=== PATIENT | female | born 1960 | race Caucasian/White ===

== ENCOUNTER 2021-11-26 12:56 | Emergency (ER) | payer OTHER ==
[2021-11-26 13:38] LABS: Urine Blood Trace-intact (Negative); Urine Glucose Negative (Negative); Urine Protein Negative (Negative); Urine Specific Gravity 1.025 (1.005-1.030)
[2021-11-26] MEDS ORDERED: HYDROCODONE/APAP 5/325 MG TAB ONE (13:51)
--- NOTE | 2021-11-26 15:25 | RAD REPORT ---
EXAM DESCRIPTION: RAD - Lumbar Spine 3 Views - 11/26/2021 2:42 pm CLINICAL HISTORY: PAIN COMPARISON: LUMBAR SPINE 3 VIEWS dated 06/18/2014 FINDINGS: A three-view lumbar spine examination was performed. Lumbar bodies are normal in height and normal in AP alignment. There is a very minimal right convex s coliotic curvature with the apex at L2. Very slight right lateral subluxation of L2 relative to L3 pr esent. This is a stable alignment pattern. No acute compression fracture. No pathologic bone changes seen. L2-3 and L4-5 disc space narrowing pr esent. Findings have progressed from the remote 2015 study. Facet joint degenerative changes are pres ent in the mid and lower lumbar spine. Mild SI joint degenerative changes are present. No pars defect s identified. Dense nonaneurysmal aortoiliac calcifications seen. IMPRESSION: No acute compression fracture or acute lumbar spine finding identifiable. Degenerative changes are scattered throughout lumbar spine most notable at L2-3 and L4-5. Degenerativ e changes at these 2 levels have progressed from 2015.
--- NOTE | 2021-11-26 15:36 | EDPHYS ---
Physician Documentation [facility] Name: Taryn Murillo Age: 61 yrs Sex: Female : 1960 Arrival Date: 11/26/2021 Time: 13:01 Bed 14 Private MD: ED Physician Román Leavitt HPI: 11/26 14:04 This 61 yrs old Female presents to ER via Ambulatory with complaints of Back Pain. en 14:04 61 yo F with COPD, HTN, CAD presents to ED with right sided low back after falling on en jetty 8d ago. Pain is worse with ambulation and movement. No radiating. Denies F/C/N/V. No CP, SOB, Abd pain, dysuria, hematuria. No numbness, tingling, or weakness. Historical: - Allergies: 13:27 No Known Allergies; ss - Immunization history:: Adult Immunizations unknown. - Social history:: Smoking status: Patient reports the use of cigarette tobacco products, smokes one pack cigarettes per day. ROS: 14:04 Constitutional: Negative for fever, chills, and weight loss. en 14:04 Constitutional: Negative for body aches, chills, fatigue. 14:04 Cardiovascular: Negative for chest pain. 14:04 Respiratory: Negative for shortness of breath. 14:04 Abdomen/GI: Negative for abdominal pain, nausea and vomiting. 14:04 Back: Positive for decreased range of motion, pain with movement. 14:04 : Negative for urinary frequency. 14:04 All other systems are negative. Exam: 14:04 Constitutional: This is a well developed, well nourished patient who is awake, alert, en and in no acute distress. 14:04 Constitutional: The patient appears in no acute distress, alert, awake. 14:04 Eyes: Conjunctiva: normal, no exudate, no injection. 14:04 ENT: Mouth: Lips: moist, Posterior pharynx: Airway: patent. 14:04 Neck: ROM/movement: is normal, is supple. 14:04 Cardiovascular: Rate: normal, Rhythm: regular, Pulses: no pulse deficits are appreciated, Heart sounds: normal, no murmur, no rub, no gallop, Edema: is not appreciated. 14:04 Respiratory: the patient does not display signs of respiratory distress, Respirations: normal, Breath sounds: are clear throughout, no rales, rhonchi, no stridor. 14:04 Abdomen/GI: Inspection: abdomen appears normal, Bowel sounds: normal, Palpation: abdomen is soft and non-tender, in all quadrants, no pulsatile masses. 14:04 Back: right SI joint TTP. no midline TTP. No CVA TTP. 14:04 Musculoskeletal/extremity: 5/5 PF.DF/EHL. no foot drop, steady gait. 2+ DP/PT pulses. negative SLR. 14:04 Neuro: Orientation: appropriate for stated age, to person, place \T\ time. Mentation: appropriate for stated age, 2+ patellar reflexes, normal peroneal nerve sensation. 14:04 Psych: Behavior/mood is pleasant, cooperative, Affect is calm. Vital Signs: 13:25 BP 127 / 72; Pulse 86; Resp 18; Temp 98.0; Pulse Ox 96% on R/A; Weight 87.09 kg; Height ss 5 ft. 3 in. (160.02 cm); Pain 10/10; 15:43 BP 133 / 94; Pulse 74; Resp 17; Pulse Ox 96% ; Pain 7/10; ll1 13:25 Body Mass Index 34.01 (87.09 kg, 160.02 cm) ss MDM: 13:40 Patient medically screened. en 14:04 Differential diagnosis: muscle strain, sciatica, fracture. Data reviewed: vital signs, en nurses notes, radiologic studies, and as a result, I will will get XR and control pain. . 15:33 ED course: Pain better controlled. Discussed XR vs MRI. no acute fx on XR today. Will en dc home with Robaxin, medrol dose pack and ketorolac with PCP f/u. Acute ER return precautions reviewed. . 11/26 13:38 Order name: Urine Dipstick-Ancillary; Complete Time: 14:14 EDMS 11/26 13:40 Order name: Lumbar Spine (3 Views) XRAY; Complete Time: 15:33 en 11/26 13:40 Order name: Urine Dipstick-Ancillary (obtain specimen); Complete Time: 13:42 en Administered Medications: 13:49 Drug: HYDROcodone-acetaminophen 5 mg-325 mg 1 tabs {Note: rass 0.} Route: PO; ll1 15:43 Follow up: Response: No adverse reaction; Pain is decreased; RASS: Alert and Calm (0) ll1 Disposition: 16:43 Co-signature as Attending Physician, Román Leavitt MD I agree with the assessment and kdr plan of care. Disposition Summary: 11/26/21 15:35 Discharge Ordered Location: Home en Problem: new en Symptoms: have improved en Condition: Stable en Diagnosis - Low back pain en Followup: en - With: Rajendra Carrasquillo MD - When: As needed - Reason: Discharge Instructions: - Discharge Summary Sheet en - Acute Back Pain, Adult en Forms: - Medication Reconciliation Form en - Thank You Letter en - Antibiotic Education en - Prescription Opioid Use en Prescriptions: - ketorolac 10 mg Oral tablet - take 1 tablet by ORAL route every 4-6 hours not to exceed 40 mg in 24hrs; 12 en tablet; Refills: 0, Product Selection Permitted - methocarbamol 750 mg Oral Tablet - take 1 tablet by ORAL route 3 times per day; 30 tablet; Refills: 0, Product en Selection Permitted Signatures: Dispatcher [employer] EDMS Román Leavitt MD MD [facility] Gabriela Downing RN RN Stephy Aponte RN RN ll1 Rachel Silva PA PA en
--- NOTE | 2021-11-26 15:36 | ER ---
Nurse's Notes [facility] Name: Taryn Murillo Age: 61 yrs Sex: Female : 1960 Arrival Date: 11/26/2021 Time: 13:01 Bed 14 Private MD: Diagnosis: Low back pain Presentation: 11/26 13:25 Chief complaint: Patient states: R lower back pain that started approx 1 week ago, ss states that she fell 1 week ago, also has hx of kidney infection, reports frequent urination, denies burning, also denies fever, N/V. Coronavirus screen: Vaccine status: Patient reports receiving the 2nd dose of the covid vaccine. Ebola Screen: No symptoms or risks identified at this time. Initial Sepsis Screen: Does the patient meet any 2 criteria? No. Patient's initial sepsis screen is negative. Does the patient have a suspected source of infection? No. Patient's initial sepsis screen is negative. Risk Assessment: Do you want to hurt yourself or someone else? Patient reports no desire to harm self or others. 13:25 Method Of Arrival: Ambulatory ss 13:25 Acuity: WALT 3 ss 13:30 Onset of symptoms was November 20, 2021. ll1 Historical: - Allergies: 13:27 No Known Allergies; ss - Immunization history:: Adult Immunizations unknown. - Social history:: Smoking status: Patient reports the use of cigarette tobacco products, smokes one pack cigarettes per day. Screenin:29 Abuse screen: Denies threats or abuse. Nutritional screening: No deficits noted. ll1 Tuberculosis screening: No symptoms or risk factors identified. 13:31 Fall Risk Fall in past 12 months (25 points). Gait- Weak (10 pts.). Total Buckner Fall ll1 Scale indicates Low Risk Score (25-44 pts). Fall prevention measures have been instituted. Side Rails Up X 2 Placed close to Nursing Station Frequent Obs/Assesments occuring Family Present and informed to notify staff if they need to leave bedside As available Patient and Family Educated on Fall Prevention Program and strategies. Assessment: 13:29 General: Appears uncomfortable, Behavior is calm, cooperative, appropriate for age. ll1 Pain: Complains of pain in R lower back Quality of pain is described as aching, Aggravated by increased activity. Neuro: Level of Consciousness is awake, alert, obeys commands. : Reports urinary frequency. Musculoskeletal: Reports pain in R lower back. 13:49 Reassessment: No changes from previously documented assessment. Patient and/or family ll1 updated on plan of care and expected duration. Pain level reassessed. Patient is alert, oriented x 3, equal unlabored respirations, skin warm/dry/pink. 14:30 Reassessment: No changes from previously documented assessment. Patient and/or family ll1 updated on plan of care and expected duration. Pain level reassessed. 15:35 Reassessment: No changes from previously documented assessment. Patient and/or family ll1 updated on plan of care and expected duration. Pain level reassessed. Vital Signs: 13:25 BP 127 / 72; Pulse 86; Resp 18; Temp 98.0; Pulse Ox 96% on R/A; Weight 87.09 kg; Height ss 5 ft. 3 in. (160.02 cm); Pain 10/10; 15:43 BP 133 / 94; Pulse 74; Resp 17; Pulse Ox 96% ; Pain 7/10; ll1 13:25 Body Mass Index 34.01 (87.09 kg, 160.02 cm) ED Course: 13:01 Patient arrived in ED. rg4 13:22 Rachel Silva PA is PHCP. en 13:22 Román Levaitt MD is Attending Physician. en 13:27 Triage completed. ss 13:27 Arm band placed on Patient placed in an exam room. ss 13:29 Stephy Aponte, LIEN is Primary Nurse. ll1 13:29 Patient has correct armband on for positive identification. Bed in low position. Call ll1 light in reach. Side rails up X 1. Pulse ox on. NIBP on. 14:44 Lumbar Spine (3 Views) XRAY In Process Unspecified. EDMS 15:34 Rajendra Carrasquillo MD is Referral Physician. en 15:43 No provider procedures requiring assistance completed. Patient did not have IV access ll1 during this emergency room visit. Administered Medications: 13:49 Drug: HYDROcodone-acetaminophen 5 mg-325 mg 1 tabs {Note: rass 0.} Route: PO; ll1 15:43 Follow up: Response: No adverse reaction; Pain is decreased; RASS: Alert and Calm (0) ll1 Medication: 13:29 VIS not applicable for this client. ll1 Outcome: 15:35 Discharge ordered by . en 15:43 Discharged to home ambulatory. ll1 15:43 Condition: stable 15:43 Discharge instructions given to patient, Instructed on discharge instructions, follow up and referral plans. medication usage, Demonstrated understanding of instructions, follow-up care, medications, Prescriptions given X 2. 15:44 Patient left the ED. ll1 Signatures: Dispatcher [employer] EDMS Gabriela Downing RN RN ss Garcia, Rubi 4 Stephy Aponte RN RN ll1 Rachel Silva PA PA en
[2021-11-26 16:00] VITALS: TEMP 98; O2SAT 96
[2021-11-26 16:02] VITALS: BP 133/94
== END 2021-11-26 15:44 | disposition home or self-care (01) ==
LOC: ER 12:56
DX: M54.50 Low back pain, unspecified (principal); I10 Essential (primary) hypertension; J44.9 Chronic obstructive pulmonary disease, unspecified; F17.210 Nicotine dependence, cigarettes, uncomplicated
CPT/HCPCS: 72100; 81003; 99284

== ENCOUNTER 2022-06-28 06:41 | Emergency (ER) | payer OTHER ==
--- OUTSIDE RECORDS SUMMARY | 2022-06-28 06:44 | XMS REPORT | Continuity of Care Document ---
:1960 Author Organization [facility] Address [address] [place] [address] [address]. [address] [place] [address] Care Team Providers Name Role Phone Kings Gallagher Attending Clinician Unavailable KINGS GALLAGHER Admitting Clinician Unavailable Problems This patient has no known problems. Allergies, Adverse Reactions, Alerts This patient has no known allergies or adverse reactions. Medications This patient has no known medications. Procedures This patient has no known procedures. Encounters Start End Encounter Admission Attending Care Care Encounter Source Date/Time Date/Time Type Type Clinicians Facility Department ID 2022-06-22 Outpatient Gallagher, [facility] [id number] Common 15:12:01 [facility] 2022-04-23 [facility] [id number] Common 14:59:01 [facility] 2022-03-22 [facility] [id number] Common 11:11:02 [facility] 2022-03-16 Outpatient Gallagher, [facility] [id number] Common 09:09:03 Kings [facility] 2022-03-07 Outpatient Gallagher, [facility] [id number] Common 08:36:03 Kings [facility] 2022-03-05 [facility] [id number] Common 11:31:02 [facility] 2022-02-19 [facility] [id number] Common 13:30:01 [facility] 2022-02-14 Outpatient Gallagher, [facility] [id number] Common 11:29:02 [facility] 2022-02-12 Outpatient ÁNGEL Gallagher [facility] [id number] Common 13:20:02 [facility] Results Test Description Test Time Test Comments Results Result Comments Source COMPREHENSIVE METABOLIC PANEL 2021-10-31 02:48:16 Test Item Value Reference Range Interpretation Comme nts GLUCOSE (test code = 2216) 100 MG/DL 70-99 H BUN (test code = 2207) 15 MG/DL 8-23 CREATININE (test code = 0.90 MG/DL 0.60-1.30 2213) eGFR (2020 CKD-EPI) (test 72 ML/MIN/1.73 >60 code = 83716) CALC BUN/CREAT (test code = 17 RATIO 6-28 2234) SODIUM (test code = 223) 142 MEQ/L 133-146 POTASSIUM (test code = 2228) 4.3 MEQ/L 3.5-5.4 CHLORIDE (test code = 2215) 105 MEQ/L 95-107 CARBON DIOXIDE (test code = 25 MEQ/L 19-31 2205) CALCIUM (test code = 2209) 10.0 MG/DL 8.5-10.5 PROTEIN, TOTAL (test code = 7.4 G/DL 6.1-8.3 2228) ALBUMIN (test code = 2201) 4.5 G/DL 3.5-5.2 CALC GLOBULIN (test code = 2.9 G/DL 1.9-3.7 2239) CALC A/G RATIO (test code = 1.6 RATIO 1.0-2.6 2233) BILIRUBIN, TOTAL (test code 0.4 MG/DL See_Comment [Automated message] The = 2206) system which ge nerated this result transmit yvonne reference range: <=1.2. T he reference range was not u sed to interpret this result as normal/abnormal . ALKALINE PHOSPHATASE (test 92 U/L 40-140 code = 2204) AST (test code = 2218) 13 U/L 9-40 ALT (test code = 2219) 12 U/L 5-40 LIPID [id number] 02:48:16 Test Item Value Reference Range Interpretation Comments CHOLESTEROL (test 137 MG/DL <200 code = 2210) TRIGLYCERIDES (test 281 MG/DL <150 H code = 2232) HDL CHOLESTEROL (test 41 MG/DL >39 code = 2220) CALC LDL CHOL (test 63 MG/DL <100 NOTE: C ALCULATED LDL code = 2237) IS BASED ON VICKEY-MOODY METHOD WHICHINCLUDES ADJUSTABLE TRIGLYCERIDE:VL DL CHOLESTEROL RAT IO.THIS FACTOR VARIES B Y MEASURED TRIGLY CERIDE AND NON-HDLCHOL ESTEROL CONCENTRATIONS WITH INCREASED CALCU LATED LDL SEENIN HIGH ER TRIGLYCERIDE OR LOWER NON-HDL SPECIME NS. FOR MOREINFORMATION , SEE CLIENT ANNOUNCE MENT AT [email or web address] RISK RATIO LDL/HDL 1.54 RATIO <3.22 UNLESS O THERWISE (test code = 2238) INDICATED , ALL TESTING PERFORMED [facility]. [address] [place] [id number] [facility] DIRECTOR: CAMRYN RAZA M.D. CLIA NUMBER [id number] CAP ACCREDITATION N O. [id number]
[2022-06-28] MEDS ORDERED: DIAZEPAM 5 MG TABLET ONE (07:19)
[2022-06-28] MEDS ORDERED: HYDROCODONE/APAP 5/325 MG TAB ONE (07:20)
--- NOTE | 2022-06-28 08:08 | RAD REPORT ---
EXAM DESCRIPTION: RAD - Chest Pa And Lat (2 Views) - 06/28/2022 7:40 am CLINICAL HISTORY: PAIN COMPARISON: Two view chest 06/18/2014, CT chest 04/03/2022 TECHNIQUE: Frontal and lateral views of the chest were obtained. FINDINGS: The lungs are clear of an acute process. Interstitial pattern matches comparison. Small ro unded density is shown on the CT chest study to be a small area of sclerosis in the posterior right f ifth rib. No new or progressive nodule from prior imaging. Trachea is midline. No hilar mass or lymphadenopathy. Heart size is normal and central vasculature is within normal limits. No pleural effusion or pneumothorax seen. No acute bony finding noted. No a ortic abnormality. IMPRESSION: No acute cardiopulmonary process. No significant change from comparison study.
--- NOTE | 2022-06-28 08:24 | ER ---
Nurse's Notes [facility] Name: Taryn Murillo Age: 62 yrs Sex: Female : 1960 Arrival Date: 06/28/2022 Time: 06:46 Bed 4 Private MD: Diagnosis: Muscle spasm;Chest wall pain Presentation: 06/28 06:54 Chief complaint: Patient states: slipped on mud while walking to car did not fall kl reports twisted back c/o left lower back pain. Care prior to arrival: None. Mechanism of Injury: Fall same level fall. Trauma event details: Injury occurred in the [facility], Injury occurred: at home. Injury occurred: June 28, 2022 Injury occurred at: 06:00. 06:54 Acuity: WALT 4 kl 06:54 Method Of Arrival: Wheelchair 07:15 Coronavirus screen: At this time, the client does not indicate any symptoms associated kc6 with coronavirus-19. Ebola Screen: No symptoms or risks identified at this time. Initial Sepsis Screen: Does the patient meet any 2 criteria? No. Patient's initial sepsis screen is negative. Does the patient have a suspected source of infection? No. Patient's initial sepsis screen is negative. Risk Assessment: Do you want to hurt yourself or someone else? Patient reports no desire to harm self or others. Onset of symptoms was June 28, 2022. Historical: - Allergies: 06:58 No Known Allergies; kl - PMHx: 06:58 COPD; Chronic pain; kl - PSHx: 06:58 hysterectomy; stents; kl - Immunization history:: Client reports receiving the 2nd dose of the Covid vaccine, Flu vaccine is up to date. - Social history:: Smoking status: Patient reports the use of cigarette tobacco products, smokes one pack cigarettes per day. Screenin:15 [facility] ED Fall Risk Assessment (Adult) History of falling in the last 3 months, kc6 including since admission Yes- single mechanical fall (1 pt) Confusion or Disorientation No (0 pts) Intoxicated or Sedated No (0 pts) Impaired Gait No (0 pts) Mobility Assist Device Used No (0 pt) Altered Elimination No (0 pt) Score/Fall Risk Level 0 - 2 = Low Risk Oriented to surroundings, Maintained a safe environment, Educated pt \T\ family on fall prevention, incl call for assistance when getting out of bed, Assessed \T\ reinforced patient's understanding of fall precautions, Hourly rounding (assess needs \T\ fall precautionary measures) done. Abuse screen: Denies threats or abuse. Denies injuries from another. Nutritional screening: No deficits noted. Tuberculosis screening: No symptoms or risk factors identified. Assessment: 06:58 General: Appears distressed, uncomfortable, well developed, Behavior is calm, kl cooperative. Pain: Complains of pain in left low back and left mid back Pain currently is 10 out of 10 on a pain scale. Neuro: No deficits noted. EENT: No deficits noted. No signs and/or symptoms were reported regarding the EENT system. 07:15 General: Appears in no apparent distress. uncomfortable, Behavior is calm, cooperative, kc6 appropriate for age. Pain: Complains of pain in left low back Pain does not radiate. Pain currently is 2 out of 10 on a pain scale. at worst was 10 out of 10 on a pain scale. Quality of pain is described as sharp, Pain began suddenly, Is continuous, Alleviated by rest, Aggravated by increased activity, repositioning, Noted to be guarding, resistant to movement, Also complains of no other associated symptoms. Neuro: Hernandez Agitation-Sedation Scale (RASS): 0 - Alert and Calm Level of Consciousness is awake, alert, obeys commands, Oriented to person, place, time, situation, Appropriate for age. Cardiovascular: Capillary refill < 3 seconds. Respiratory: Airway is patent Trachea midline Respiratory effort is even, unlabored, Respiratory pattern is regular, symmetrical. GI: No signs and/or symptoms were reported involving the gastrointestinal system. : No signs and/or symptoms were reported regarding the genitourinary system. EENT: No signs and/or symptoms were reported regarding the EENT system. Derm: No signs and/or symptoms reported regarding the dermatologic system. Skin is intact, Skin is pink, warm \T\ dry. Musculoskeletal: No signs and/or symptoms reported regarding the musculoskeletal system. Circulation, motion, and sensation intact. Capillary refill < 3 seconds, Range of motion: intact in all extremities. 08:10 Reassessment: Patient appears in no apparent distress at this time. No changes from kc6 previously documented assessment. Patient and/or family updated on plan of care and expected duration. Pain level reassessed. Patient is alert, oriented x 3, equal unlabored respirations, skin warm/dry/pink. Patient denies pain at this time. Patient states feeling better. Patient states symptoms have improved. Vital Signs: 07:25 BP 150 / 73; Pulse 75; Resp 18 S; Pulse Ox 96% on R/A; Pain 10/10; kc6 08:10 BP 117 / 74; Pulse 75; Resp 18 S; Pulse Ox 96% on R/A; Pain 0/10; kc6 ED Course: 06:46 Patient arrived in ED. ja2 06:57 Triage completed. 06:58 Phillip Guido DO is Attending Physician. ms3 07:06 Ani Rosales, LIEN is Primary Nurse. kc6 07:15 Arm band placed on. kc6 07:15 Patient has correct armband on for positive identification. Bed in low position. Call kc6 light in reach. Side rails up X 1. Adult w/ patient. 07:42 Chest Pa And Lat (2 Views) XRAY In Process Unspecified. EDMS 08:21 Kings Gallagher DO is Referral Physician. ms3 08:32 No provider procedures requiring assistance completed. Patient did not have IV access kc6 during this emergency room visit. Administered Medications: 07:18 Drug: Valium (diazepam) 5 mg Route: PO; kc6 08:10 Follow up: Response: No adverse reaction kc6 07:18 Drug: HYDROcodone-acetaminophen 5 mg-325 mg 1 tabs Route: PO; kc6 08:10 Follow up: Response: No adverse reaction; Pain is decreased; RASS: Alert and Calm (0) kc6 Medication: 08:32 VIS not applicable for this client. kc6 Outcome: 08:22 Discharge ordered by MD. ms3 08:32 Discharged to home via wheelchair, with family. kc6 08:32 Condition: stable 08:32 Discharge instructions given to patient, family, Instructed on discharge instructions, follow up and referral plans. Demonstrated understanding of instructions, follow-up care. 08:32 Patient left the ED. kc6 Signatures: Dispatcher [employer] EDMS Rajni Aponte RN RN kl Prokisch, Amanda, RN RN ap3 Phillip Guido DO DO ms3 Neva Baker ja2 Ani Rosales RN RN kc6 Corrections: (The following items were deleted from the chart) 07:31 07:25 BP 150 / 73; Pulse 75bpm; Pulse Ox 96% RA; ap3 kc6
--- NOTE | 2022-06-28 08:24 | EDPHYS ---
Physician Documentation [facility] Name: Taryn Murillo Age: 62 yrs Sex: Female : 1960 Arrival Date: 06/28/2022 Time: 06:46 Bed 4 Private MD: ED Physician Phillip Guido HPI: 06/28 07:25 This 62 yrs old Female presents to ER via Wheelchair with complaints of Fall Injury. ms3 07:25 62-year-old female with past medical history of COPD, chronic pain, coronary artery ms3 disease, hypertension, hyperlipidemia presents status post slipping in the mud and grabbing hold of her car. Patient states when doing that she twisted. Patient denies falling. Patient states she is having 10/10 left side pain. Patient states the pain is worse with movement and better when sitting.. Historical: - Allergies: 06:58 No Known Allergies; kl - PMHx: 06:58 COPD; Chronic pain; kl - PSHx: 06:58 hysterectomy; stents; kl - Immunization history:: Client reports receiving the 2nd dose of the Covid vaccine, Flu vaccine is up to date. - Social history:: Smoking status: Patient reports the use of cigarette tobacco products, smokes one pack cigarettes per day. ROS: 07:25 Constitutional: Negative for fever, and chills. Neck: Negative for injury, pain, and ms3 swelling, Cardiovascular: Negative for chest pain, and palpitations. Respiratory: Negative for shortness of breath, cough, wheezing, and pleuritic chest pain, Abdomen/GI: Negative for abdominal pain, nausea, vomiting, diarrhea, and constipation. 07:25 Skin: Negative for injury, rash, and discoloration. 07:25 MS/extremity: Positive for pain. 07:25 All other systems are negative. Exam: 07:25 Constitutional: This is a well developed, well nourished patient who is awake, alert, ms3 and in no acute distress. Neck: Trachea midline, no cervical lymphadenopathy. Supple, full range of motion without nuchal rigidity, or vertebral point tenderness. No Meningismus. Cardiovascular: Regular rate and rhythm with a normal S1 and S2. No gallops, murmurs, or rubs. Normal PMI, no JVD. No pulse deficits. Respiratory: Lungs have equal breath sounds bilaterally, clear to auscultation and percussion. No rales, rhonchi or wheezes noted. No increased work of breathing, no retractions or nasal flaring. Abdomen/GI: Soft, non-tender, with normal bowel sounds. No distension or tympany. No guarding or rebound. No evidence of tenderness throughout. Skin: Warm, dry with normal turgor. Normal color with no rashes, no lesions, and no evidence of cellulitis. 07:25 Chest/axilla: Inspection: normal, Palpation: tenderness, that is moderate, of the left lateral chest. Vital Signs: 07:25 BP 150 / 73; Pulse 75; Resp 18 S; Pulse Ox 96% on R/A; Pain 10/10; kc6 08:10 BP 117 / 74; Pulse 75; Resp 18 S; Pulse Ox 96% on R/A; Pain 0/10; kc6 MDM: 07:13 Patient medically screened. ms3 07:25 Differential diagnosis: fracture, sprain, strain. ms3 08:31 Data reviewed: vital signs, nurses notes, radiologic studies, plain films. I considered ms3 the following discharge prescriptions or medication management in the emergency department I discussed and recommended Over The Counter medications, Medications were administered in the Emergency Department. See MAR. Independent interpretation of the following test(s) in the Emergency Department X-Ray: My interpretation is My independent interpretation of chest x-ray image: Negative. Historians other than the Patient: Daughter/Son: Patient's daughter. Counseling: I had a detailed discussion with the patient and/or guardian regarding: the historical points, exam findings, and any diagnostic results supporting the discharge/admit diagnosis, radiology results, the need for outpatient follow up, to return to the emergency department if symptoms worsen or persist or if there are any questions or concerns that arise at home. ED course: Discussed chest x-ray findings with patient. Patient to follow-up with primary care physician in 2 to 3 days patient understands and agrees with plan. All questions were answered. Return precautions discussed include worsening symptoms, or any other concerns. On reevaluation patient is improved, in no apparent distress, nontoxic, speaking full sentences.. 06/28 07:13 Order name: Chest Pa And Lat (2 Views) XRAY; Complete Time: 08:17 ms3 Administered Medications: 07:18 Drug: Valium (diazepam) 5 mg Route: PO; kc6 08:10 Follow up: Response: No adverse reaction kc6 07:18 Drug: HYDROcodone-acetaminophen 5 mg-325 mg 1 tabs Route: PO; kc6 08:10 Follow up: Response: No adverse reaction; Pain is decreased; RASS: Alert and Calm (0) kc6 Disposition Summary: 06/28/22 08:22 Discharge Ordered Location: Home ms3 Condition: Stable ms3 Diagnosis - Muscle spasm ms3 - Chest wall pain ms3 Followup: ms3 - With: Kings Gallagher DO - When: 2 - 3 days - Reason: Recheck today's complaints Discharge Instructions: - Discharge Summary Sheet ms3 - Musculoskeletal Pain ms3 Forms: - Medication Reconciliation Form ms3 - Thank You Letter ms3 - Antibiotic Education ms3 - Prescription Opioid Use ms3 Signatures: Dispatcher [employer] Rajni Nicholson, Phillip Pinto RN, DO DO ms3 Ani Rosales RN RN kc6
[2022-06-28 08:37] VITALS: O2SAT 96
[2022-06-28 08:38] VITALS: BP 117/74
== END 2022-06-28 08:32 | disposition home or self-care (01) ==
LOC: ER 06:41
DX: M62.838 Other muscle spasm (principal); F17.210 Nicotine dependence, cigarettes, uncomplicated
CPT/HCPCS: 71046; 99283

== ENCOUNTER 2022-10-10 17:32 | Emergency (ER) | payer OTHER ==
--- OUTSIDE RECORDS SUMMARY | 2022-10-10 17:35 | XMS REPORT | Continuity of Care Document ---
:1960 Author Organization [facility] t Address [address] [place] [address] [place] [id number] Care Team Providers Name Role Phone Kings [...] Date/Time Type Type Clinicians Facility Department ID 2022-07-13 Outpatient Gallagher, [facility] [id number] Common 12:00:01 Kings [address] [facility] 2022-06-22 Outpatient Gallagher, [facility] [id number] Common 15:12:01 Kings [facility] 2022-04-23 Outpatient Gallagher, [facility] [id number] Common 14:59:01 Kings [facility] 2022-03-22 Outpatient Gallagher, [facility] [id number] Common 11:11:02 Kings [facility] 2022-03-16 Outpatient Gallagher, [facility] [id number] Common 09:09:03 Kings [facility] 2022-03-07 Outpatient Gallagher, [facility] [id number] Common 08:36:03 Kings [facility] 2022-03-05 Outpatient Gallagher, [facility] [id number] Common 11:31:02 Kings [address] [facility] 2022-02-19 Outpatient Gallagher, [facility] [id number] Common 13:30:01 [facility] 2022-02-14 Outpatient GallagherÁNGEL lilly [facility] [id number] Common 11:29:02 [facility] 2022-02-12 Outpatient Gallagher, ÁNGEL [facility] [id number] Common 13:20:02 [facility] Results Test Description Test Time Test Comments Results Result Comments Source COMPREHENSIVE METABOLIC PANEL 2021-10-31 02:48:16 Test Item Value Reference Range Interpretation Comme nts GLUCOSE (test code = 2216) 100 MG/DL 70-99 H BUN (test code = 2207) 15 MG/DL 8-23 CREATININE (test code = 0.90 MG/DL 0.60-1.30 2213) eGFR (2020 CKD-EPI) (test 72 ML/MIN/1.73 >60 code = 04378) CALC BUN/CREAT (test code = 17 RATIO 6-28 2234) SODIUM (test code = 2231) 142 MEQ/L 133-146 POTASSIUM (test code = [...] code = 2219) 12 U/L 5-40 LIPID [id number] 02:48:16 Test Item Value Reference Range Interpretation [...] MOREINFORMATION , SEE CLIENT ANNOUNCE MENT AT [email or web address] [email or web address] RATIO LDL/HDL 1.54 RATIO <3.22 UNLESS O THERWISE (test code = 2238) INDICATED , ALL TESTING PERFORMED [facility], [facility]. [address] [place] [id number] [place] [address] DIRECTOR: CAMRYN RAZA M.D. CLIA NUMBER [id number] CAP ACCREDITATION N O. [id number]
--- NOTE | 2022-10-10 19:38 | RAD REPORT ---
EXAM DESCRIPTION: RAD - Wrist Left 3 View - 10/10/2022 7:23 pm CLINICAL HISTORY: PAIN. Fall COMPARISON: Knee Left 3 View dated 10/10/2022 TECHNIQUE: Left wrist, 3 views. FINDINGS: No acute fracture. There is no dislocation or periosteal reaction noted. Cannulated screw along the scaphoid. Mild scaphoid multangular degenerative changes. Mild negative ulnar variance. No suspicious bony finding. No foreign body or other soft tissue abnormality. IMPRESSION: No acute osseous abnormality. Findings as above.
--- NOTE | 2022-10-10 19:39 | RAD REPORT ---
EXAM DESCRIPTION: RAD - Knee Left 3 View - 10/10/2022 7:23 pm CLINICAL HISTORY: PAIN COMPARISON: No comparisons TECHNIQUE: Left knee, 3 views. FINDINGS: No fracture, dislocation or periosteal reaction.No joint effusion seen. No joint space jaison rowing. No soft tissue abnormality. Clinical concerns for internal derangement or occult bony injury could be further assessed with MR im aging. IMPRESSION: Negative left knee.
--- NOTE | 2022-10-10 20:00 | RAD REPORT ---
EXAM DESCRIPTION: CT - Head C Spine Cap Wo Con - 10/10/2022 7:23 pm CLINICAL HISTORY: TRAUMA COMPARISON: No comparisons TECHNIQUE: Head and cervical spine CT images were obtained without IV contrast. Chest, abdomen, and pelvis CT images were obtained also without IV contrast. Multiplanar reformats were generated and rev iewed. All CT scans are performed using dose optimization technique as appropriate and may include automated exposure control or mA/KV adjustment according to patient size. FINDINGS: CT HEAD: No intracranial hemorrhage, mass effect, or edema. No evidence of acute territorial infarct. No midli ne shift or abnormal fluid collection. The ventricles are normal in caliber and configuration for age . Basal cisterns are patent. Mastoid aircells and paranasal sinuses are clear. No acute skull fractur e. CT CERVICAL SPINE: No acute cervical spine fracture or subluxation. Degenerative multilevel mild spondylolisthesis, with up to 3 millimeter anterolisthesis of C4 over C5. Vertebral body heights are well maintained. Facet joints are normal in alignment. No hyperattenuating canal hematoma. Bilateral rudimentary cervical ri bs. Multilevel degenerative changes of the uncovertebral joint and facet articulations, most pronounc ed at C4-5 on the left. Findings contribute to moderate bilateral neural foraminal narrowing at C4-5 and C5-6. Prevertebral and paraspinous soft tissues are unremarkable. CT CHEST: No pneumothorax, pulmonary contusion or pleural fluid collection. No mediastinal hematoma and the aor ta and pulmonary arteries are unremarkable. Subpleural right lower lobe 7 millimeter ovoid nodule is stable. No chest will mass or abnormal axillary finding. No displaced rib fracture or other significa nt bony finding. CT ABDOMEN/ PELVIS: No evidence of traumatic injury to solid abdominal viscera. Gallbladder and biliary tree are unremark able. No bowel injury or significant finding. Colonic diverticulosis. No free air, free fluid or abno rmal fat stranding. No urinary bladder abnormality. No significant bony finding. IMPRESSION: No acute traumatic findings in the brain, cervical spine, chest, abdomen or pelvis. Incidental findings as above.
[2022-10-10 20:34] LABS: Absolute Lymphocytes (CBC) 2.3 K/uL (0.7-4.9); Hematocrit 38.5 % (36.0-45.0); Lymphocytes % 19.8 % (15.3-44.8); MPV 6.5 fL (7.6-11.3); RBC Red Blood Cell Count 4.32 M/uL (3.86-4.86)
[2022-10-10] MEDS ORDERED: ACETAMINOPHEN 500 MG TAB ONE (20:38)
[2022-10-10] MEDS ORDERED: NA CHLORIDE 0.9% 500 ML ONE (20:38)
[2022-10-10 20:59] LABS: Albumin 3.4 g/dL (3.4-5.0); Bilirubin Total 0.3 mg/dL (0.2-1.0); Potassium 3.5 mEq/L (3.5-5.1); Troponin High Sensitivity 7.7 pg/mL (<58.9)
--- NOTE | 2022-10-10 21:10 | EDPHYS ---
Physician Documentation [facility] Name: Taryn Murillo Age: 62 yrs Sex: Female : 1960 Arrival Date: 10/10/2022 Time: 17:32 Bed 10 Private MD: ED Physician Ebonie Gallagher HPI: 10/10 20:19 This 62 yrs old Female presents to ER via Ambulatory with complaints of Fall hayley Injury. 20:19 Details of fall: The patient fell from an upright position, while walking. Onset: The hayley symptoms/episode began/occurred just prior to arrival. Associated injuries: The patient sustained left hand and left leg. Severity of symptoms: At their worst the symptoms were mild, in the emergency department the symptoms are unchanged. The patient has not experienced similar symptoms in the past, The patient has experienced similar episodes in the past, multiple times. Historical: - Allergies: 17:46 No Known Allergies; nj1 - PMHx: 17:46 COPD; Chronic pain; Hypercholesterolemia; Hypertensive disorder; nj1 - PSHx: 17:46 hysterectomy; stents; nj1 - Immunization history:: Client reports receiving the 2nd dose of the Covid vaccine. - Social history:: Smoking status: Patient reports the use of cigarette tobacco products, smokes one pack cigarettes per day. ROS: 20:20 Constitutional: Negative for fever, chills, and weight loss, Eyes: Negative for injury, hayley pain, redness, and discharge, ENT: Negative for injury, pain, and discharge, Neck: Negative for injury, pain, and swelling, Cardiovascular: Negative for chest pain, palpitations, and edema, Respiratory: Negative for shortness of breath, cough, wheezing, and pleuritic chest pain, Abdomen/GI: Negative for abdominal pain, nausea, vomiting, diarrhea, and constipation, Back: Negative for injury and pain, : Negative for injury, bleeding, discharge, and swelling, Skin: Negative for injury, rash, and discoloration, Neuro: Negative for headache, weakness, numbness, tingling, and seizure, Psych: Negative for depression, anxiety, suicide ideation, homicidal ideation, and hallucinations, Allergy/Immunology: Negative for hives, rash, and allergies, Endocrine: Negative for neck swelling, polydipsia, polyuria, polyphagia, and marked weight changes, Hematologic/Lymphatic: Negative for swollen nodes, abnormal bleeding, and unusual bruising. 20:20 MS/extremity: Positive for tenderness, of the left arm and left leg. Exam: 20:20 Constitutional: This is a well developed, well nourished patient who is awake, alert, hayley and in no acute distress. Head/Face: Normocephalic, atraumatic. Eyes: Pupils equal round and reactive to light, extra-ocular motions intact. Lids and lashes normal. Conjunctiva and sclera are non-icteric and not injected. Cornea within normal limits. Periorbital areas with no swelling, redness, or edema. ENT: Nares patent. No nasal discharge, no septal abnormalities noted. Tympanic membranes are normal and external auditory canals are clear. Oropharynx with no redness, swelling, or masses, exudates, or evidence of obstruction, uvula midline. Mucous membranes moist. Neck: Trachea midline, no thyromegaly or masses palpated, and no cervical lymphadenopathy. Supple, full range of motion without nuchal rigidity, or vertebral point tenderness. No Meningismus. Chest/axilla: Normal chest wall appearance and motion. Nontender with no deformity. No lesions are appreciated. Cardiovascular: Regular rate and rhythm with a normal S1 and S2. No gallops, murmurs, or rubs. Normal PMI, no JVD. No pulse deficits. Respiratory: Lungs have equal breath sounds bilaterally, clear to auscultation and percussion. No rales, rhonchi or wheezes noted. No increased work of breathing, no retractions or nasal flaring. Abdomen/GI: Soft, non-tender, with normal bowel sounds. No distension or tympany. No guarding or rebound. No evidence of tenderness throughout. Back: No spinal tenderness. No costovertebral tenderness. Full range of motion. Female : Normal external genitalia. Skin: Warm, dry with normal turgor. Normal color with no rashes, no lesions, and no evidence of cellulitis. Neuro: Awake and alert, GCS 15, oriented to person, place, time, and situation. Cranial nerves II-XII grossly intact. Motor strength 5/5 in all extremities. Sensory grossly intact. Cerebellar exam normal. Normal gait. Psych: Awake, alert, with orientation to person, place and time. Behavior, mood, and affect are within normal limits. 20:20 ECG was reviewed by the Attending Physician. Vital Signs: 17:40 BP 174 / 81; Pulse 76; Resp 18; Temp 97.9(TE); Pulse Ox 98% ; Weight 88.9 kg; Height 5 nj1 ft. 3 in. ; Pain 3/10; 20:36 BP 153 / 74; Pulse 75; Resp 20; Pulse Ox 97% on R/A; vg1 21:20 BP 139 / 71; Pulse 70; Resp 18; Pulse Ox 97% on R/A; vg1 17:40 Body Mass Index 34.72 (88.90 kg, 160.02 cm) nj1 17:40 Pain Scale: Adult nj1 MDM: 17:41 Patient medically screened. [facility] 20:22 Differential diagnosis: closed fracture, contusion, abrasion, tendonitis. Differential hayley diagnosis: abrasion, closed head injury, contusion, fracture, multiple trauma, sprain, strain. Data reviewed: vital signs, nurses notes, lab test result(s), EKG, radiologic studies, CT scan. Consideration of Admission/Observation Escalation of care including admission/observation considered. I considered the following discharge prescriptions or medication management in the emergency department Medications were administered in the Emergency Department. See MAR. Independent interpretation of the following test(s) in the Emergency Department EKG: See my EKG interpretation above. Test considered but Not performed: MRI: no mri brain, no carotid usg. Care significantly affected by the following chronic conditions: Hypertension, Chronic Obstructive Pulmonary Disease, Obesity, chronic pain, hyperchlesterolemia. 10/10 18:27 Order name: CBC with Diff; Complete Time: 20:53 [facility] 10/10 18:27 Order name: Comprehensive Metabolic Panel; Complete Time: 21:08 [facility] 10/10 18:27 Order name: Troponin High Sensitivity; Complete Time: 21:08 [facility] 10/10 18:27 Order name: CT Traumagram (Head C Spine CAP wo con); Complete Time: 20:10 [facility] 10/10 18:27 Order name: Knee Left 3 View XRAY; Complete Time: 20:10 [facility] 10/10 18:27 Order name: Wrist Left (3 View) XRAY; Complete Time: 20:10 [facility] 10/10 18:27 Order name: EKG; Complete Time: 18:28 [facility] 10/10 18:27 Order name: EKG - Nurse/Tech; Complete Time: 20:24 [facility] 10/10 18:27 Order name: Ice pack; Complete Time: 20:28 hayley EC:20 Rate is 68 beats/min. Rhythm is regular. QRS [place] is Normal. UT interval is normal. QRS hayley interval is normal. QT interval is normal. No Q waves. T waves are Normal. No ST changes noted. Clinical impression: Normal ECG and No evidence of ischemia. Interpreted by me. Reviewed by me. Administered Medications: 20:32 Drug: NS 0.9% IV 500 ml Route: IV; Rate: bolus; Site: right antecubital; vg1 21:31 Follow up: IV Status: Completed infusion; IV Intake: 500ml vg1 20:36 Drug: Acetaminophen PO 1000 mg Route: PO; vg1 21:31 Follow up: Response: No adverse reaction; No change in condition vg1 Disposition Summary: 10/10/22 21:09 Discharge Ordered Location: Home sp3 Problem: new sp3 Symptoms: have improved sp3 Condition: Stable sp3 Diagnosis - Fall on same level, unspecified sp3 - Repeated falls sp3 - Contusion of left knee sp3 - Contusion of left wrist sp3 - Tobacco abuse counseling sp3 - Tobacco use sp3 - COPD/ Chronic obstructive pulmonary disease, unspecified sp3 - Essential (primary) hypertension sp3 Followup: hayley - With: Private Physician - When: 2 - 3 days - Reason: Recheck today's complaints, Continuance of care, Re-evaluation by your physician Followup: hayley - With: - When: 2 - 3 days - Reason: Recheck today's complaints, Continuance of care, Re-evaluation by your physician Discharge Instructions: - Discharge Summary Sheet hayley - Contusion hayley - Chronic Obstructive Pulmonary Disease hayley - Fall Prevention in the Home, Adult hayley - Hypertension, Adult hayley - Steps to Quit Smoking hayley - Health Risks of Smoking hayley - Contusion, Fpne-kl-Vjyo hayley - Hypertension, Adult, Gzqg-gn-Inaa hayley - Steps to Quit Smoking, Ndtc-hq-Vgnh hayley - Fall Prevention in the Home, Adult, Mjiz-er-Caid hayley - How to Take Your Blood Pressure, Qsln-db-Wekn hayley - Aspirin and Your Heart hayley - Managing Your Hypertension hayley - Smoking and Musculoskeletal Health hayley Forms: - Medication Reconciliation Form sp3 - Thank You Letter sp3 - Antibiotic Education sp3 - Prescription Opioid Use sp3 Signatures: Dispatcher [employer] Sahil Garcia MD MD cha Garcia, Victoria, RN RN vg1 Ebonie Gallagher MD MD sp3 Andrea Mondragon, LIEN RN as6 Carla Mendoza RN RN nj1 Corrections: (The following items were deleted from the chart) 17:46 PMHx: High cholesterol; nj1 nj1 17:46 PSHx: back injections; nj1 nj1
--- NOTE | 2022-10-10 21:10 | ER ---
Nurse's Notes [facility] Name: Taryn Murillo Age: 62 yrs Sex: Female : 1960 Arrival Date: 10/10/2022 Time: 17:32 Bed 10 Private MD: Diagnosis: Fall on same level, unspecified;Repeated falls;Contusion of left knee;Contusion of left wrist;Tobacco abuse counseling;Tobacco use;COPD/ Chronic obstructive pulmonary disease, unspecified;Essential (primary) hypertension Presentation: 10/10 17:40 Chief complaint: Patient states: Fall today, unsure of what happened, denies tripping. nj1 Landed on left knee/wrist. Denies hitting her head. Daughter states she did not witness the actual fall, but states she did not LOC. Concerned of what could be causing her to fall. Feels fine now. Coronavirus screen: Vaccine status: Patient reports receiving the 2nd dose of the covid vaccine. Ebola Screen: Patient denies travel to an Ebola-affected area in the 21 days before illness onset. Initial Sepsis Screen: Does the patient meet any 2 criteria? No. Patient's initial sepsis screen is negative. Does the patient have a suspected source of infection? No. Patient's initial sepsis screen is negative. Risk Assessment: Do you want to hurt yourself or someone else? Patient reports no desire to harm self or others. Onset of symptoms was January 25, 2022. 17:40 Method Of Arrival: [facility]ulatory [facility] 17:40 Acuity: WALT 3 nj1 Historical: - Allergies: 17:46 No Known Allergies; nj1 - PMHx: 17:46 COPD; Chronic pain; Hypercholesterolemia; Hypertensive disorder; nj1 - PSHx: 17:46 hysterectomy; stents; nj1 - Immunization history:: Client reports receiving the 2nd dose of the Covid vaccine. - Social history:: Smoking status: Patient reports the use of cigarette tobacco products, smokes one pack cigarettes per day. Screenin:10 [facility] ED Fall Risk Assessment (Adult) History of falling in the last 3 months, vg1 including since admission Yes- physiologic fall (2 pts) Confusion or Disorientation No (0 pts) Intoxicated or Sedated No (0 pts) Impaired Gait No (0 pts) Mobility Assist Device Used No (0 pt) Altered Elimination No (0 pt) Score/Fall Risk Level 0 - 2 = Low Risk Oriented to surroundings, Maintained a safe environment, Educated pt \T\ family on fall prevention, incl call for assistance when getting out of bed, Assessed \T\ reinforced patient's understanding of fall precautions. Abuse screen: Denies threats or abuse. Denies injuries from another. Nutritional screening: No deficits noted. Tuberculosis screening: No symptoms or risk factors identified. Assessment: 20:10 General: Appears in no apparent distress. uncomfortable, Behavior is calm, cooperative. vg1 Pain: Complains of pain in left wrist Pain currently is 8 out of 10 on a pain scale. Neuro: Level of Consciousness is awake, alert, obeys commands, Oriented to person, place, time, situation, Denies blurred vision dizziness, headache. Cardiovascular: Denies chest pain, shortness of breath, Patient's skin is warm and dry. Respiratory: Airway is patent Respiratory effort is even, unlabored. GI: Patient currently denies nausea, vomiting. : No signs and/or symptoms were reported regarding the genitourinary system. EENT: No signs and/or symptoms were reported regarding the EENT system. Derm: Skin is pink, warm \T\ dry. Musculoskeletal: Circulation, motion, and sensation intact. Vital Signs: 17:40 BP 174 / 81; Pulse 76; Resp 18; Temp 97.9(TE); Pulse Ox 98% ; Weight 88.9 kg; Height 5 nj1 ft. 3 in. ; Pain 3/10; 20:36 BP 153 / 74; Pulse 75; Resp 20; Pulse Ox 97% on R/A; vg1 21:20 BP 139 / 71; Pulse 70; Resp 18; Pulse Ox 97% on R/A; vg1 17:40 Body Mass Index 34.72 (88.90 kg, 160.02 cm) nj1 17:40 Pain Scale: Adult nj1 ED Course: 17:36 Patient arrived in ED. mr 17:41 Saihl Ogden MD is Attending Physician. [facility] 17:46 Triage completed. nj1 17:49 Arm band placed on left wrist. nj1 19:25 CT Traumagram (Head C Spine CAP wo con) In Process Unspecified. EDMS 19:25 Knee Left 3 View XRAY In Process Unspecified. EDMS 19:25 Wrist Left (3 View) XRAY In Process Unspecified. EDMS 20:10 Patient has correct armband on for positive identification. Bed in low position. Call vg1 light in reach. Side rails up X 1. Adult w/ patient. Client placed on continuous cardiac and pulse oximetry monitoring. NIBP monitoring applied. 20:18 Initial lab(s) drawn, by me, sent to lab. Inserted saline lock: 20 gauge in right vg1 antecubital area, using aseptic technique. Blood collected. 20:23 Maddie Anglin RN is Primary Nurse. vg1 20:50 Attending Physician role handed off by Sahil Ogden MD sp3 20:50 Ebonie Gallagher MD is Attending Physician. sp3 21:09 Juan M Winters MD is Referral Physician. sp3 21:28 No provider procedures requiring assistance completed. IV discontinued, intact, vg1 bleeding controlled, No redness/swelling at site. Pressure dressing applied. Administered Medications: 20:32 Drug: NS 0.9% IV 500 ml Route: IV; Rate: bolus; Site: right antecubital; vg1 21:31 Follow up: IV Status: Completed infusion; IV Intake: 500ml vg1 20:36 Drug: Acetaminophen PO 1000 mg Route: PO; vg1 21:31 Follow up: Response: No adverse reaction; No change in condition vg1 Medication: 20:10 VIS not applicable for this client. vg1 Intake: 21:31 IV: 500ml; Total: 500ml. vg1 Outcome: 21:09 Discharge ordered by . sp3 21:32 Discharged to home via wheelchair. vg1 21:32 Condition: good 21:32 Discharge instructions given to patient, Instructed on discharge instructions, follow up and referral plans. Demonstrated understanding of instructions, follow-up care. 21:32 Patient left the ED. vg1 Signatures: Dispatcher [employer] [facility] Sahil Ogden MD MD cha Rivera, Mary Maddie Anglin, RN RN vg1 Ebonie Gallagher MD MD 3 Carla Mendoza RN RN nj1 Corrections: (The following items were deleted from the chart) 17:49 17:46 PMHx: High cholesterol; nj1 nj 17:49 17:46 PSHx: back injections; [facility] nj
[2022-10-10 22:35] VITALS: TEMP 97.9
[2022-10-10 22:36] VITALS: O2SAT 97
[2022-10-10 22:38] VITALS: BP 139/71
--- NOTE | 2022-10-11 11:22 | EKG ---
Test Date: 2022-10-10 Test Time: 20:13:39 Nurse Anesthesia Program Director: PHILOMENA MEASUREMENT RESULTS: Intervals: Rate: 68 MO: 142 QRSD: 96 QT: 410 QTc: 435 Trail: P: 71 MO: 142 QRS: 58 T: 74 INTERPRETIVE STATEMENTS: Normal sinus rhythm Normal ECG Compared to ECG 11/24/2013 11:02:00 No significant changes Electronically Signed On 10-11-22 11:20:05 CDT by Jerod Freeman
== END 2022-10-10 21:32 | disposition home or self-care (01) ==
LOC: ER 17:32
DX: S80.02XA Contusion of left knee, initial encounter (principal); S60.212A Contusion of left wrist, initial encounter; W18.30XA Fall on same level, unspecified, initial encounter; R29.6 Repeated falls; J44.9 Chronic obstructive pulmonary disease, unspecified; I10 Essential (primary) hypertension; Z72.0 Tobacco use; Z71.6 Tobacco abuse counseling
CPT/HCPCS: 85025; 36415; 84484; 80053; 70450; 71250; 72125; 73110; 73562; J7040; 93005

== ENCOUNTER 2022-11-19 07:00 | Day surgery (SDC) | payer OTHER ==
[2022-11-15 14:39] LABS: Absolute Lymphocytes (CBC) 2.7 K/uL (0.7-4.9); Hematocrit 40.9 % (36.0-45.0); Lymphocytes % 24.2 % (15.3-44.8); MCV 88.8 fL (80-100); MPV 6.7 fL (7.6-11.3)
[2022-11-15 14:45] LABS: Potassium 3.9 mEq/L (3.5-5.1)
[2022-11-15 16:12] LABS: Protime INR 0.93
--- NOTE | 2022-11-16 16:30 | EKG ---
Test Date: 2022-11-15 Test Time: 14:18:54 [employer] Metal Contractor: JUAN MEASUREMENT RESULTS: Intervals: Rate: 76 [place]: 132 QRSD: 90 QT: 380 QTc: 427 [place]: P: 72 [place]: 132 QRS: 64 T: 81 INTERPRETIVE STATEMENTS: Normal sinus rhythm Normal ECG Compared to ECG 10/10/2022 20:13:39 No significant changes Electronically Signed On 11-16-22 16:27:57 CDT by Juan M Winters
[2022-11-19] MEDS ORDERED: NA CHLORIDE 0.9% 500 ML ONE (07:43)
[2022-11-19] MEDS ORDERED: ATROPINE SULF 1 MG/10 ML SYR IV ONE (08:22)
[2022-11-19] MEDS ORDERED: HEPA 1000U/500MLS 2,000 UNIT/1,000 ML BAG IV ONE (08:22)
[2022-11-19] MEDS ORDERED: MIDAZOLAM HCL 2 MG/2 ML INJ ONE (08:22)
[2022-11-19] MEDS ORDERED: FENTANYL CITR 100 MCG/2 ML ONE (08:22)
--- NOTE | 2022-11-19 11:15 | OP ---
Date of Procedure: 11/19/2022 Surgeon: CLEVE NOEL Procedure Performed: Selective bilateral carotid angiogram. Indication: Carotid stenosis by Doppler. Access: Left femoral artery 4-Anguillan closed with manual pressure. Complications: None. Bleeding: Less than 20 mL. Description Of Procedure: After risks, benefits, and alternatives were explained, patient agreed to procedure and signed informed consent. Patient was brought into cardiac catheterization laboratory, prepped and draped in a sterile fashion. Then, I accessed right femoral artery using micropuncture k it, ultrasound guidance and fluoroscopy were placed for a 4-Anguillan [place] sheath. I took a 4-Frenc h 3DRC catheter into the aortic root, engaged the left common carotid and exchanged for 6-Anguillan JR4 catheter, engaged the right common carotid and took standard views and then removed the catheter and the sheath. Manual pressure was used for closure with good hemostasis. Findings: 1.Right common carotid distally is about 70% to 80% stenosis before the bifurcation. The right inte rnal and external appeared to be normal. 2.Left common carotid is normal. Left internal and left external carotids are normal. Conclusion: Severe distal right common carotid artery stenosis. Recommendations: CT Surgery for endarterectomy. SR/MODL Voice ID: [id number] Report ID: [id number]
[2022-11-19 12:34] VITALS: BP 109/69; O2SAT 96
== END 2022-11-19 11:15 | disposition home or self-care (01) ==
LOC: CCL 07:00
PROVIDERS: ATTEND Internal Medicine
DX: I65.21 Occlusion and stenosis of right carotid artery (principal); I25.10 Atherosclerotic heart disease of native coronary artery without angina pectoris; I10 Essential (primary) hypertension; E78.5 Hyperlipidemia, unspecified; F17.210 Nicotine dependence, cigarettes, uncomplicated; Z79.899 Other long term (current) drug therapy
CPT/HCPCS: 93005; 85025; 80048; 36415; 85610; 85730; 36222; 76937; C1893; J2250; J3010; J7040; J0461

== ENCOUNTER 2024-10-07 14:56 | Emergency (ER) | payer OTHER ==
--- OUTSIDE RECORDS SUMMARY | 2024-10-07 15:00 | XMS REPORT | Continuity of Care Document ---
Author Name Unknown Address [address] [facility]. [address] [place] [address] [facility] Address [address] [facility]. [address] [place] [address] Care Team Providers Care Field Clinical Engineer Name Role Phone Wanda Gallagher Attending Clinician Kayleen Michael Attending Clinician WANDA Avery Admitting Clinician Kayleen Michael Admitting Clinician Camille hollingsworth Payers Payer Name Policy Type Policy Number Effective Date Expirati on Date Source [facility] Dual Complete Choice (Regional PPO D-SNP) [id number] [facility] Problems Condition Name Condition Details Condition Category Status Onset Date Resolution Date Last Treatment Date Treating Clinician Comments Source [id number] Breast asymmetry Problem [facility] [id number] Abnormal mammogram of left breast Problem [facility] [id number] Body mass index [BMI] 33.0-33.9, adult Problem [facility] [id number] Osteoarthr itis of cervical spine, unspecifie d spinal osteoarthr itis complicati on status Problem [facility] [id number] Chronic obstructiv e pulmonary disease, unspecifie d COPD type Problem [facility] [id number] Moderate major depression , single episode Problem [facility] [id number] Tobacco use disorder Problem [facility] [id number] Other obesity due to excess calories Problem [facility] [id number] Mixed hyperlipid emia Problem [facility] [id number] Other chronic pain Problem [facility] [id number] Osteoarthr itis of lumbar spine, unspecifie d spinal osteoarthr itis complicati on status Problem [facility] [id number] Coronary artery disease of [place] artery of [place] heart with stable angina pectoris Problem [facility] [id number] Pain, joint, shoulder, right Problem [facility] [id number] Pain, joint, hip, left Problem [facility] [id number] Essential (primary) hypertensi on Problem [facility] Solitary pulmonary nodule Nodule of lower lobe of right lung Problem [facility] [id number] Pain, joint, hip, right Problem [facility] [id number] Stented coronary artery Problem [facility] Problem with balance Balance problems Problem [facility] [id number] Leukocytos is, unspecifie d type Problem [facility] [id number] Bilateral carotid artery stenosis Problem [facility] [id number] Right lower lobe pulmonary nodule Problem [facility] Allergic rhinitis Non-season al allergic rhinitis, unspecifie d trigger Problem [facility] Allergies, Adverse Reactions, Alerts Allergy Name Allergy Type Status Severity Reaction(s) Onset Date Inactive Date Treating Clinician Comments Source No Known Allergie s DA Active U 11-20 00:00: 00 [facility] Social History Social Habit Start Date Stop Date Quantity Comments Source History of Tobacco Use Current Smoker [facility] Smoking Status Start Date Stop Date Source Current Smoker 2024-08-19 00:00:00 [facility] Never Smoker [facility] Medications Ordered Medication Name Filled Medication Name Start Date Stop Date Current Medication? Ordering Clinician Indication Dosage Frequency Signature (SIG) Comments Components Source Lidocaine Lidocaine 2021-05 0 00:00: 00 No 20mg [facility] Kenalog (Triamcinol one) Kenalog (Triamcinol one) 2021-05 0 00:00: 00 No 40mg [facility] Rosuvastati n Calcium 20 MG Rosuvastati n Calcium 20 MG No 1{table t} QD Rosuvastat in Calcium 20 MG Symbicort 160-4.5 MCG/ACT Symbicort 160-4.5 MCG/ACT No 2{puffs } BID Symbicort 160-4.5 MCG/ACT DULoxetine HCl 20 MG DULoxetine HCl 20 MG No 1{capsu le} BID DULoxetine HCl 20 MG amLODIPine Besylate 5 MG amLODIPine Besylate 5 MG No 1{table t} QD amLODIPine Besylate 5 MG predniSONE 20 MG predniSONE 20 MG No 2{table t} QD predniSONE 20 MG Ezetimibe 10 MG Ezetimibe 10 MG No 1{table t} QD Ezetimibe 10 MG Ventolin HFA 108 (90 Base) MCG/ACT Ventolin HFA 108 (90 Base) MCG/ACT No 1{puff_ as_need ed} 6xD Ventolin HFA 108 (90 Base) MCG/ACT Aspirin Adult Low Dose 81 MG Aspirin Adult Low Dose 81 MG No 1{table t} QD Aspirin Adult Low Dose 81 MG HYDROcodone -Acetaminop hen 7.5-325 MG HYDROcodone -Acetaminop hen 7.5-325 MG No 1{table t_as_ne eded} BID HYDROcodon e-Acetamin ophen 7.5-325 MG Immunizations Ordered Immunization Name Filled Immunization Name Date Status Comments Source FLUZONE HIGH DOSE OVER 65 FLUZONE HIGH DOSE OVER 65 Unknown Completed [facility] FLUZONE HIGH DOSE OVER 65 FLUZONE HIGH DOSE OVER 65 Unknown Completed [facility] FLUZONE HIGH DOSE OVER 65 FLUZONE HIGH DOSE OVER 65 Unknown Completed [facility] FLUZONE HIGH DOSE OVER 65 FLUZONE HIGH DOSE OVER 65 Unknown Completed [facility] Vital Signs Vital Name Observation Time Observation Value Comments Josefina bryson height 2024-05-22 09:30:00 63.5 [in_i] Comm on [facility] weight 2024-05-22 09:30:00 193.6 [lb_av] Co mmon [facility] temperature 2024-05-22 09:30:00 97.9 [degF] Com mon [facility] bmi 2024-05-22 09:30:00 33.75 kg/m2 Comm on [facility] oximetry 2024-05-22 09:30:00 93 % Commo n [facility] respiratory rate 2024-05-22 09:30:00 16 /min [facility] blood pressure systolic 2024-05-22 09:30:00 136 mm[Hg] [facility] blood pressure diastolic 2024-05-22 09:30:00 78 mm[Hg] [facility] height 2024-02-14 09:30:00 63.5 [in_i] Comm on [facility] weight 2024-02-14 09:30:00 188 [lb_av] Comm on [facility] temperature 2024-02-14 09:30:00 97.5 [degF] Com mon [facility] bmi 2024-02-14 09:30:00 32.78 kg/m2 Comm on [facility] oximetry 2024-02-14 09:30:00 96 % Commo n [facility] blood pressure systolic 2024-02-14 09:30:00 122 mm[Hg] Common [facility] blood pressure diastolic 2024-02-14 09:30:00 72 mm[Hg] [facility] height 2024-02-14 09:30:00 63.5 [in_i] Comm on [facility] weight 2024-02-14 09:30:00 188 [lb_av] Comm on [facility] temperature 2024-02-14 09:30:00 97.5 [degF] Com [facility] bmi 2024-02-14 09:30:00 32.78 kg/m2 Comm on [facility] oximetry 2024-02-14 09:30:00 96 % Commo n [facility] blood pressure systolic 2024-02-14 09:30:00 122 mm[Hg] [facility] blood pressure diastolic 2024-02-14 09:30:00 72 mm[Hg] [facility] height 2023-11-08 09:30:00 63.5 [in_i] Comm on [facility] weight 2023-11-08 09:30:00 192 [lb_av] Comm on [facility] temperature 2023-11-08 09:30:00 96.6 [degF] Com [facility] bmi 2023-11-08 09:30:00 33.47 kg/m2 Comm on [facility] oximetry 2023-11-08 09:30:00 96 % Commo n [facility] blood pressure systolic 2023-11-08 09:30:00 130 mm[Hg] Common [facility] blood pressure diastolic 2023-11-08 09:30:00 74 mm[Hg] [facility] height 2023-11-08 09:40:00 63.5 [in_i] Comm on [facility] weight 2023-11-08 09:40:00 192 [lb_av] Comm on [facility] temperature 2023-11-08 09:40:00 96.6 [degF] Com [facility] bmi 2023-11-08 09:40:00 33.47 kg/m2 Comm on [facility] oximetry 2023-11-08 09:40:00 96 % Commo n [facility] respiratory rate 2023-11-08 09:40:00 16 /min [facility] blood pressure systolic 2023-11-08 09:40:00 130 mm[Hg] [facility] blood pressure diastolic 2023-11-08 09:40:00 74 mm[Hg] [facility] height 2023-07-26 09:30:00 63.5 [in_i] Comm on [facility] weight 2023-07-26 09:30:00 189.4 [lb_av] Co mmon [facility] temperature 2023-07-26 09:30:00 98.3 [degF] Com mon [facility] bmi 2023-07-26 09:30:00 33.02 kg/m2 Comm on [facility] oximetry 2023-07-26 09:30:00 90 % Commo n [facility] respiratory rate 2023-07-26 09:30:00 16 /min [facility] blood pressure systolic 2023-07-26 09:30:00 120 mm[Hg] [facility] blood pressure diastolic 2023-07-26 09:30:00 72 mm[Hg] [facility] Procedures Procedure Date / Time Performed Performing Clinicia n Source [id number] 2022-11-23 00:00:00 CHAAB.01 [facility] Encounters Start Date/Time End Date/Time Encounter Type Admission Type Attending Clinicians Care Facility Care Department Encounter ID Source 2023-08-02 10:17[facility] [id number] [facility] 2023-07-26 09:25:00 [facility] [id number] [facility] 2023-03-25 09:37:01 [facility] [id number] [facility] 2023-03-22 15:12:00 Outpatient Gallagher, Wanda STLMLC ST[facility]MLC [id number] [facility] 2023-02-18 13:18:00 Outpatient Gallagher, Wanda STLMLC STLMLC [id number] [facility] 2022-07-13 12:00:01 Outpatient Gallagher, Wanda STLMLC STLMLC [id number] [facility] 2022-06-22 15:12:01 Outpatient Gallagher, Wanda STLMLC STLMLC [id number] [facility] 2022-04-23 14:59:01 Outpatient Gallagher, Wanda STLC STLMLC [id number] [facility] 2022-03-22 11:11:02 Outpatient Gallagher, Wanda STLC STLMLC [id number] [facility] 2022-03-16 09:09:03 Outpatient Gallagher, Wanda STLC STLMLC [id number] [facility] 2022-03-07 08:36:03 Outpatient Gallagher, Wanda STLMLC STLMLC [id number] [facility] 2022-03-05 11:31:02 Outpatient Gallagher, Wanda STLMLC STLMLC [id number] [facility] 2022-02-19 13:30:01 Outpatient Gallagher, Wanda STLMLC STLMLC [id number] [facility] 2022-02-14 11:29:02 Outpatient Gallagher, Wanda STLMLC STLMLC [id number] [facility] 2022-02-12 13:20:02 Outpatient Gallagher, Wanda STLMLC STLMLC [id number] [facility] 2024-09-29 00:00:00 2024-09-29 00:00:00 (TEL) STLMLC STLMLC [id number] [facility] 2024-09-23 00:00:00 2024-09-23 00:00:00 (TEL) STLMLC STLMLC [id number] [facility] 2024-09-17 00:00:00 2024-09-17 00:00:00 (TEL) STLMLC STLMLC [id number] [facility] 2024-08-06 00:00:00 2024-08-06 00:00:00 (TEL) STLMLC STLMLC [id number] [facility] 2024-07-14 00:00:00 2024-07-14 00:00:00 (TEL) STLMLC STLMLC [id number] [facility] 2024-07-06 00:00:00 2024-07-06 00:00:00 (TEL) STLMLC STLMLC [id number] [facility] 2024-06-24 00:00:00 2024-06-24 00:00:00 (TEL) STLMLC STLMLC [id number] [facility] 2024-06-04 00:00:00 2024-06-04 00:00:00 (TEL) STLMLC STLMLC [id number] [facility] 2024-06-03 00:00:00 2024-06-03 00:00:00 (TEL) STLMLC STLMLC [id number] [facility] 2024-05-22 00:00:00 2024-05-22 00:00:00 OFFICE VISIT ESTAB PT LEVEL 4 STLMLC STLMLC [id number] [facility] 2024-05-18 00:00:00 2024-05-18 00:00:00 (TEL) STLMLC STLMLC [id number] [facility] 2024-02-27 00:00:00 2024-02-27 00:00:00 (TEL) STLMLC STLMLC [id number] [facility] 2024-02-14 00:00:00 2024-02-14 00:00:00 OFFICE VISIT ESTAB PT LEVEL 4 STLMLC STLMLC [id number] [facility] 2024-01-28 00:00:00 2024-01-28 00:00:00 (TEL) STLMLC STLMLC [id number] [facility] 2023-12-30 00:00:00 2023-12-30 00:00:00 (TEL) STLMLC STLMLC [id number] [facility] 2023-12-27 00:00:00 2023-12-27 00:00:00 (TEL) STLMLC STLMLC [id number] [facility] 2023-12-13 00:00:00 2023-12-13 00:00:00 (TEL) STLMLC STLMLC [id number] [facility] 2023-12-11 00:00:00 2023-12-11 00:00:00 (TEL) STLMLC STLMLC [id number] [facility] 2023-12-11 00:00:00 2023-12-11 00:00:00 (TEL) STLMLC STLMLC [id number] [facility] 2023-11-21 00:00:00 2023-11-21 00:00:00 (TEL) STLMLC STLMLC [id number] [facility] 2023-11-08 00:00:00 2023-11-08 00:00:00 OFFICE VISIT ESTAB PT LEVEL 4 STLMLC STLMLC [id number] [facility] 2023-11-08 00:00:00 2023-11-08 00:00:00 SUB ANNUAL [facility] VISIT STLMLC STLMLC [id number] [facility] 2023-11-04 00:00:00 2023-11-04 00:00:00 (TEL) STLMLC STLMLC [id number] [facility] 2023-10-28 00:00:00 2023-10-28 00:00:00 [facility] [id number] [facility] 2023-08-02 00:00:00 2023-08-02 00:00:00 (TEL) STLC STLC [id number] [facility] 2023-07-26 00:00:00 2023-07-26 00:00:00 OFFICE VISIT ESTAB PT LEVEL 4 [facility] [id number] [facility] 2023-07-26 00:00:00 2023-07-26 00:00:00 (TEL) [facility] [id number] [facility] 2022-11-23 05:41:00 2022-11-24 13:44:00 Inpatient Erasmo Arevalo HCACL INTE [id number] [facility] Results Test Description Test Time Test Comments Results Result Co mments Source [id number] 11:12:00* Test Item Value Reference Range Interpretation Comments SURGICAL (test code = SR) RUN DATE: 11/28/22 [place] - LAB PAGE 1 RUN TIME: 1112 Specimen Inquiry RUN USER: INTERFACE PATIENT: KAMAR MURILLO LOC: VIKY U #: [id number] AGE/SX: 62/F ROOM: [facility] RE11/23/22REG DR: Kayleen Hernandez : 56 BED: 1 DIS: 11/24/22 STATUS: DIS IN TLOC: SPEC #: [id number] RECD: 11/26/22 STATUS: THIAGO REQ #: [id number] AYAH: 11/23/22- SUBM DR: Kayleen Hernandez MD ENTERED: 11/26/22 SP TYPE: SURGICAL OTHR DR: No Primary or Family Physician Panchito Bridges MD Undefined ProviderORDERED: [id number], ANATOMIC SPEC COPIES TO: No Primary or Family Physician Kayleen Hernandez MD [address] [place] [address]. [address] [place] [id number] Panchito Bridges MD Undefined Provider PROCEDURES: [id number] (11/26/22) TISSUES: A. ARTERY,CAROTID - RIGHT CLINICAL HISTORY SAME FINAL DIAGNOSIS Right carotid artery, segment: Atherosclerotic plaque. GROSS DESCRIPTION Received in formalin and designated right carotid artery is 1 segment of bunch-whitefibrotic tissue measuring 2 cm in largest dimension. Entirely submitted. Technical component performed at [facility],[address] [place] [address], [place] [address] Unless gross only, the diagnosis is based upon microscopic examination.Immunohistochemistry: This test was developed and its performance characteristicsdetermined by this laboratory. It has not been approved nor does it need approvalby the [place] FDA. Appropriate positive and negative controls are reviewed and judgedto be acceptable for performedimmunohistochemistry and/or special stains. This laboratory CONTINUED ON NEXT PAGE RUN DATE: 11/28/22 [place] - LAB PAGE 2 RUN TIME: 111 Specimen Inquiry RUN USER: INTERFACE SPEC #: [id number] PATIENT: KAMAR MURILLO #[id number] (Continued) - LUPILLO MUNOZ (Continued) is certified under the Clinical Laboratory Improvement Amendments (CLIA-88) as qualified toperform high complexity clinical laboratory testing. CLINICAL INFORMATION RIGHT CAROTID STENOSIS Signed SIGNATURE ON FILE [place] 11/28/22 111 END OF REPORT BASIC METABOLIC [id number] 06:33:00* Test Item Value Reference Range Interpretation Comme nts SODIUM (test code = NA) 140 mEq/L 134-147 N POTASSIUM (test code = K) 4.2 mEq/L 3.4-5.0 N CHLORIDE (test code = CL) 109 mEq/L 100-108 H CARBON DIOXIDE (test code = CO2) 24 mEq/l 21-33 N ANION GAP (test code = GAP) 12 0-20 N GLUCOSE (test code = GLU) 160 mg/dL 70-110 H BLOOD UREA NITROGEN (test code = BUN) 13 mg/dL 7-18 N GLOMERULAR FILTRATION RATE (test code = GFR) 71.4 80-90 L The Glomerular Filtration Rate is a calculated parameterbased on serum Creatinine, patient age and sex. GFR valuesless than 60 mL/min/1.73 square meters are indicative ofChronic Kidney Disease. Values less than 15 mL/min/1.73square meters indicate Kidney failure. The calculation forGFR is based on the CKD-EPI (2020) calculation. This formulais race indifferent and is the recommended formula for GFRby the National Kidney Foundation for Adults.The GFR will not calculate if the sex is unknown or if thepatient's age is <18 years. CREATININE (test code = CREAT) 0.9 mg/dL 0.6-1.3 N CALCIUM (test code = CA) 9.0 mg/dL 8.0-10.5 N CBC W/AUTO [id number] 06:24:00* Test Item Value Reference Range Interpretation Comme nts WHITE BLOOD CELL (test code = WBC) 19.7 x10 3/uL 4.5-11.0 H RED BLOOD CELL (test code = RBC) 3.87 x10 6/uL 3.54-5.02 N HEMOGLOBIN (test code = HGB) 11.9 g/dL 11.0-15.0 N HEMATOCRIT (test code = HCT) 35.2 % 33.0-45.0 N MEAN CELL VOLUME (test code = MCV) 91.0 fL 81.0-99.0 N MEAN CELL HGB (test code = MCH) 30.7 pg 27.0-33.0 N MEAN CELL HGB CONCETRATION (test code = MCHC) 33.8 g/dL 33.0-37.0 N RED CELL DISTRIBUTION WIDTH CV (test code = RDW) 13.0 % 11.5-14.5 N RED CELL DISTRIBUTION WIDTH SD (test code = RDW-SD) 42.7 fL 37.0-54.0 N PLATELET COUNT (test code = PLT) 263 x10 3/uL 150-400 N MEAN PLATELET VOLUME (test code = MPV) 9.0 fL 7.0-9.0 N NEUTROPHIL % (test code = NT%) 83.8 % 56.0-77.0 H IMMATURE GRANULOCYTE % (test code = IG%) 0.7 % 0.0-2.0 N LYMPHOCYTE % (test code = LY%) 9.7 % 14.0-32.0 L MONOCYTE % (test code = MO%) 5.6 % 4.8-9.0 N EOSINOPHIL % (test code = EO%) 0.0 % 0.3-3.7 L BASOPHIL % (test code = BA%) 0.2 % 0.0-2.0 N NUCLEATED RBC % (test code = NRBC%) 0.0 % 0-0 N NEUTROPHIL # (test code = NT#) 16.49 x10 3/uL 2.0-7.6 H IMMATURE GRANULOCYTE # (test code = IG#) 0.14 x10 3/uL 0.00-0.03 H LYMPHOCYTE # (test code = LY#) 1.90 x10 3/uL 1.0-3.8 N MONOCYTE # (test code = MO#) 1.11 x10 3/uL 0.1-0.8 H EOSINOPHIL # (test code = EO#) 0.00 x10 3/uL 0.0-0.2 N BASOPHIL # (test code = BA#) 0.03 x10 3/uL 0.0-0.2 N NUCLEATED RBC # (test code = NRBC#) 0.00 x10 3/uL 0.0-0.1 N MANUAL DIFF REQUIRED (test code = MDIFF) NO BASIC METABOLIC [id number] 10:17:00* Test Item Value Reference Range Interpretation Comme nts SODIUM (test code = NA) 143 mEq/L 134-147 N POTASSIUM (test code = K) 4.0 mEq/L 3.4-5.0 N CHLORIDE (test code = CL) 114 mEq/L 100-108 H CARBON DIOXIDE (test code = CO2) 22 mEq/l 21-33 N ANION GAP (test code = GAP) 11 0-20 N GLUCOSE (test code = GLU) 142 mg/dL 70-110 H BLOOD UREA NITROGEN (test code = BUN) 18 mg/dL 7-18 N GLOMERULAR FILTRATION RATE (test code = GFR) 82.2 80-90 N The Glomerular Filtration Rate is a calculated parameterbased on serum Creatinine, patient age and sex. GFR valuesless than 60 mL/min/1.73 square meters are indicative ofChronic Kidney Disease. Values less than 15 mL/min/1.73square meters indicate Kidney failure. The calculation forGFR is based on the CKD-EPI (2020) calculation. This formulais race indifferent and is the recommended formula for GFRby the National Kidney Foundation for Adults.The GFR will not calculate if the sex is unknown or if thepatient's age is <18 years. CREATININE (test code = CREAT) 0.8 mg/dL 0.6-1.3 N CALCIUM (test code = CA) 8.4 mg/dL 8.0-10.5 N HGB [id number] 09:53:00* Test Item Value Reference Range Interpretation Comme nts HEMOGLOBIN (test code = HGB) 12.2 g/dL 11.0-15.0 N HEMATOCRIT (test code = HCT) 36.0 % 33.0-45.0 N [id number] 07:50:00* Test Item Value Reference Range Interpretation Comme nts ACT-ISTAT (test code = ACTI) 323 SEC 74-137 H Performed by cer tified check writing machine operator at [facility] LIPID PROFILE (CORONARY RISK)2022-11-23 06:37:00* Test Item Value Reference Range Interpretation Comme nts TRIGLYCERIDES (test code = TRIG) 203 mg/dL 40-150 H CHOLESTEROL (test code = CHOL) 121 mg/dL <200 CHOLESTEROL/HDL RATIO (test code = CHOLHDL) 3.24 RATIO 3.27-4.44 L RISK ASSOCIATED WITH CHOL/HDL RATIOS: RISK MALE FEMALE1/2 AVERAGE 3.43 3.27AVERAGE 4.97 4.442X AVERAGE 9.55 7.053X AVERAGE 23.39 11.04 NOTE THAT THE REFERENCE VALUE IS RELATEDTO RISK LEVELS RECOMMENDED BY THE NATL.HEART, LUNG, AND BLOOD INST. HDL CHOLESTEROL (test code = HDL) 37.3 mg/dL 39-96 L LIPOPROTEIN LDL (test code = LDL) 55.0 mg/dL 0-100 N <100 [id number] 0-129 NEAR OPTIMAL/ABOVE [id number] HIGH>JL=476 VERY HIGH*Guidelines provided by the National Cholesterol EducationProgram Adult Treatment Panel III GLUCOSE [id number] 06:36:00* Test Item Value Reference Range Interpretation Comme nts GLUCOSE BEDSIDE (test code = GLUBED) 105 MG/DL 70-110 N Performed by cer bijuied check writing machine operator at [facility] COVID 19 Asymptomatic IH [id number] 17:15:00* Test Item Value Reference Range Interpretation Comme nts COVID 19 Asymptomatic IH AG (test code = COVNONPUIAG) Negative Negative A negative resul t is presumptive and should be confirmedwith an FDA authorized molecular assay, if necessary forpatient management.A positive result does not rule out co-infections withother pathogens.This test detects both viable (live) and non-viable,SARS-CoV, and SARS-CoV-2. Test performance depends on theamount of virus (antigen) in the sample.This test has not been FDA cleared or approved; the test hasbeen authorized by FDA under an Emergency Use Authorization(EUA) for use by laboratories certified under the CLIA thatmeet the requirements to perform moderate, high or waivedcomplexity tests. UA RFLX MICR CULT IF [id number] 16:58:00* Test Item Value Reference Range Interpretation Comme nts UA COLOR (test code = COLU) JUAN ANTONIO YEL/STRAW A UA APPEARANCE (test code = APPU) SL CLOUDY CLEAR UA GLUCOSE DIPSTICK (test co de = DGLUU) NEGATIVE NEGATIVE UA BILIRUBIN DIPSTICK (test code = BILU) NEGATIVE NEGATIVE UA KETONE DIPSTICK (test cod e = KETU) TRACE NEGATIVE A UA SPECIFIC GRAVITY (test co de = SGU) 1.025 1.005-1.030 N UA BLOOD DIPSTICK (test code = MARVIN) 1+ NEGATIVE A UA PH DIPSTICK (test code = HERNANDEZ) 5.0 5.0-7.0 N UA PROTEIN DIPSTICK (test co de = PROU) NEGATIVE NEGATIVE UA UROBILINIOGEN DIPSTICK (t est code = URO) 0.2 mg/dL 0.2-1.0 UA NITRITE DIPSTICK (test co de = BARRY) POSITIVE NEGATIVE A UA LEUKOCYTE ESTERASE DIPSTI CK (test code = LEUU) TRACE NEGATIVE A UA WBC (test code = WBCU) 4-9 WBC/HPF 0-3 A UA RBC (test code = RBCU) 4-10 RBC/HPF 0-3 UA WBC NO REFLEX (test code = WBCUCL) 4-9 WBC/HPF 0-3 A UA BACTERIA (test code = BACU) 2+ /HPF NONE SEEN A UA SQUAMOUS CELLS (test code = SQU) 0-5 /HPF NONE SEEN UA TRANSITIONAL CELLS (test code = TRANU) 1+ /HPF NONE SEEN A UA CALCIUM OXALATE CRYSTALS (test code = CAOXU) 4+ /HPF NONE SEEN A UA HYALINE CAST (test code = HYALU) 0-2 /LPF NONE SEEN UA MUCUS (test code = MUCU) 4+ /LPF NONE SEEN A Indication for culture: Gross HematuriaSpecimen Description: CLEAN CATCH COMPREHENSIVE METABOLIC [id number] 16:39:00* Test Item Value Reference Range Interpretation Comme nts SODIUM (test code = NA) 143 mEq/L 134-147 N POTASSIUM (test code = K) 4.1 mEq/L 3.4-5.0 N CHLORIDE (test code = CL) 108 mEq/L 100-108 N CARBON DIOXIDE (test code = CO2) 27 mEq/l 21-33 N ANION GAP (test code = GAP) 12 0-20 N GLUCOSE (test code = GLU) 118 mg/dL 70-110 H BLOOD UREA NITROGEN (test code = BUN) 14 mg/dL 7-18 N GLOMERULAR FILTRATION RATE (test code = GFR) 71.4 80-90 L The Glomerular Filtration Rate is a calculated parameterbased on serum Creatinine, patient age and sex. GFR valuesless than 60 mL/min/1.73 square meters are indicative ofChronic Kidney Disease. Values less than 15 mL/min/1.73square meters indicate Kidney failure. The calculation forGFR is based on the CKD-EPI (202) calculation. This formulais race indifferent and is the recommended formula for GFRby the National Kidney Foundation for Adults.The GFR will not calculate if the sex is unknown or if thepatient's age is <18 years. CREATININE (test code = CREAT) 0.9 mg/dL 0.6-1.3 N TOTAL PROTEIN (test code = PROT) 7.1 g/dL 6.4-8.2 N ALBUMIN (test code = ALB) 3.90 g/dL 3.4-5.0 N CALCIUM (test code = CA) 9.8 mg/dL 8.0-10.5 N BILIRUBIN TOTAL (test code = BILT) 0.30 mg/dL 0.0-1.0 N SGOT/AST (test code = AST) 14 IUnit/L 15-37 L SGPT/ALT (test code = ALT) 12 IUnit/L 30-65 L ALKALINE PHOSPHATASE TOTAL (test code = ALKP) 74 IUnit/L 20-125 N PROTHROMBIN [id number] 16:32:00* Test Item Value Reference Range Interpretation Comme nts PROTHROMBIN TIME PATIENT (test code = PTP) 11.4 SECONDS 9.3-12.9 N INTERNATIONAL NORMAL RATIO (test code = INR) 1.0 0.8-1.2 N TARGET INR BY INDICATION Indication INR1. Prophylaxis of venous thrombosis 2.0 - 3.0 (orthopedic surgery), Prophylaxis of venous thrombosis (other than high-risk surgery), Treatment of Deep Vein Thrombosis/Pulmonary Embolism, Prevention of systemic embolism - Tissue heart valves, Acute Myocardial Infarction (to prevent systemic embolism), Valvular heart disease, Atrial Fibrillation, Bileaflet mechanical valve in aortic position.2. Mechanical prosthetic valves (high risk), 2.5 - 3.5 Presence of Lupus Anticoagulant or Antiphospholipid Antibodies, Prevention of systemic embolism - Acute Myocardial Infarction (to prevent recurrent infarct). THROMBOPLASTIN TIME [id number] 16:32:00* Test Item Value Reference Range Interpretation Comme nts THROMBOPLASTIN TIME PARTIAL (test code = PTT) 27.2 Seconds 25.0-39.5 N Therapeutic Rang e: 50.4 - 88.3 Seconds Effective 09/09/2018 CBC W/AUTO [id number] 16:23:00* Test Item Value Reference Range Interpretation Comme nts WHITE BLOOD CELL (test code = WBC) 10.9 x10 3/uL 4.5-11.0 N RED BLOOD CELL (test code = RBC) 4.45 x10 6/uL 3.54-5.02 N HEMOGLOBIN (test code = HGB) 13.3 g/dL 11.0-15.0 N HEMATOCRIT (test code = HCT) 40.6 % 33.0-45.0 N MEAN CELL VOLUME (test code = MCV) 91.2 fL 81.0-99.0 N MEAN CELL HGB (test code = MCH) 29.9 pg 27.0-33.0 N MEAN CELL HGB CONCETRATION (test code = MCHC) 32.8 g/dL 33.0-37.0 L RED CELL DISTRIBUTION WIDTH CV (test code = RDW) 12.8 % 11.5-14.5 N RED CELL DISTRIBUTION WIDTH SD (test code = RDW-SD) 42.5 fL 37.0-54.0 N PLATELET COUNT (test code = PLT) 267 x10 3/uL 150-400 N MEAN PLATELET VOLUME (test c ode = MPV) 8.8 fL 7.0-9.0 N NEUTROPHIL % (test code = NT%) 67.4 % 56.0-77.0 N IMMATURE GRANULOCYTE % (test code = IG%) 0.5 % 0.0-2.0 N LYMPHOCYTE % (test code = LY%) 23.1 % 14.0-32.0 N MONOCYTE % (test code = MO%) 6.2 % 4.8-9.0 N EOSINOPHIL % (test code = EO%) 2.3 % 0.3-3.7 N BASOPHIL % (test code = BA%) 0.5 % 0.0-2.0 N NUCLEATED RBC % (test code = NRBC%) 0.0 % 0-0 N NEUTROPHIL # (test code = NT#) 7.35 x10 3/uL 2.0-7.6 N IMMATURE GRANULOCYTE # (test code = IG#) 0.06 x10 3/uL 0.00-0.03 H LYMPHOCYTE # (test code = LY#) 2.53 x10 3/uL 1.0-3.8 N MONOCYTE # (test code = MO#) 0.68 x10 3/uL 0.1-0.8 N EOSINOPHIL # (test code = EO#) 0.25 x10 3/uL 0.0-0.2 H BASOPHIL # (test code = BA#) 0.06 x10 3/uL 0.0-0.2 N NUCLEATED RBC # (test code = NRBC#) 0.00 x10 3/uL 0.0-0.1 N MANUAL DIFF REQUIRED (test c ode = NADEEM) NO - XR CHEST 2 [id number] 00:00:00 [facility] 1960 Sex: F FAX: Kayleen Foster [phone] [place]: St: PRE Name: KAMAR MURILLO [facility] : 1960 Age/S: 62/F [address] [place] [address] Unit #: [id number] Loc: [place] [address] Phys: Kayleen Hernandez MD Acct: [id number] Dis Date: Status: PRE IN PHONE #: [phone] Exam Date: 11/20/20228 FAX #: [phone] Reason: PRE OP EXAMS: CPT CODE: [id number] XR CHEST 2 V 24064 PROCEDURE INFORMATION: Exam: XR Chest Exam date and time: 11/20/2022 3:47 PM Age: 62 years old Clinical indication: Other: Pre op TECHNIQUE: Imaging protocol: Radiologic exam of the chest. Views: 2 views. PA and Lateral COMPARISON: No relevant prior studies available. FINDINGS: Lungs: There are normal lung volumes without consolidation or interstitial opacities. Pleural spaces: Unremarkable. No pleural effusion. No pneumothorax. Heart/Mediastinum: The heart size is normal. The pulmonary vasculature is normal. The mediastinal contour is normal. The trachea is midline. Bones/joints: No acute abnormality seen. IMPRES ZENA: No acute cardiopulmonary findings. Electronically Signed by Bethany Rivers on11/20/2022 at 1650 Reported and signed by: Vern Rivers M.D. CC: Kayleen Hernandez MD Technologist: RT Valdo(Krys) Trnscrd Date/Time/By: 11/20/2022 (1649) : By: SophyTDO Orig Print D/T: S: 11/20/2022 (1649) PAGE 1 Signed ReportCOMPREHENSIVE METABOLIC [id number] 02:48:16* Test Item Value Reference Range Interpretation Comme nts GLUCOSE (test code = 2217) 100 MG/DL 70-99 H BUN (test code = 2207) 15 MG/DL 8-23 CREATININE (test code = 2214) 0.90 MG/DL 0.60-1.30 eGFR (2020 CKD-EPI) (test code = 83324) 72 ML/MIN/1.73 >60 CALC BUN/CREAT (test code = 223) 17 RATIO 6-28 SODIUM (test code = 223) 142 MEQ/L 133-146 POTASSIUM (test code = 2228) 4.3 MEQ/L 3.5-5.4 CHLORIDE (test code = 2215) 105 MEQ/L 95-107 CARBON DIOXIDE (test code = 2206) 25 MEQ/L 19-31 CALCIUM (test code = 2209) 10.0 MG/DL 8.5-10.5 PROTEIN, TOTAL (test code = 2228) 7.4 G/DL 6.1-8.3 ALBUMIN (test code = 220) 4.5 G/DL 3.5-5.2 CALC GLOBULIN (test code = 2240) 2.9 G/DL 1.9-3.7 CALC A/G RATIO (test code = 2234) 1.6 RATIO 1.0-2.6 BILIRUBIN, TOTAL (test code = 2207) 0.4 MG/DL See_Comment [Automated me ssage] The system which generated this result transmitted reference range: <=1.2. The reference range was not used to interpret this result as normal/abnormal. ALKALINE PHOSPHATASE (test code = 2204) 92 U/L 40-140 AST (test code = 2218) 13 U/L 9-40 ALT (test code = 2219) 12 U/L 5-40 LIPID [id number] 02:48:16* Test Item Value Reference Range Interpretation Comme nts CHOLESTEROL (test code = 2210) 137 MG/DL <200 TRIGLYCERIDES (test code = 2232) 281 MG/DL <150 H HDL CHOLESTEROL (test code = 2220) 41 MG/DL >39 CALC LDL CHOL (test code = 2237) 63 MG/DL <100 NOTE: CALCULATED LDL IS BASED ON VICKEY-MOODY METHOD WHICHINCLUDES ADJUSTABLE TRIGLYCERIDE:VLDL CHOLESTEROL RATIO.THIS FACTOR VARIES BY MEASURED TRIGLYCERIDE AND NON-HDLCHOLESTEROL CONCENTRATIONS WITH INCREASED CALCULATED LDL SEENIN HIGHER TRIGLYCERIDE OR LOWER NON-HDL SPECIMENS. FOR MOREINFORMATION, SEE CLIENT ANNOUNCEMENT AT [email or web address] RISK RATIO LDL/HDL (test code = 2238) 1.54 RATIO <3.22 UNLESS OTHERW ISE INDICATED, ALL TESTING PERFORMED [facility] [address] [place] [address] BUTTON BROACHER: CAMRYN RAZA M.D. CLIA NUMBER [id number] [place] [id number] Notes Date/Time Note Provider Source 2022-11-24 13:14:00 [facility] ([facility]) Discharge Summary REPORT#:[id number] REPORT STATUS: Signed DATE:11/24/22 TIME: 1314 PATIENT: KAMAR MURILLO UNIT #: [id number] ROOM/BED: 3313-1 : 56 AGE: 62 SEX: F ATTEND: Kayleen Hernandez MD ADM AUTHOR: Amparo Whitlock Physic * ALL edits or amendments must be made on the electronic/computer document * General Information Discharge date: 11/24/22 Discharge diagnosis: Carotid artery stenosis Hospital course: This is a very pleasant 62-year-old female with PMH of CAD, HTN, HLP, who was followed by her master fire control technician Dr. Winters. On routine follow-up a carotid Doppler showed significant carotid artery stenosis. She underwent angiogram and was found to have significant 70-80% right internal carotid artery stenosis. She denies any symptoms of chest pains, denies any shortness of breath, denies any paroxysmal nocturnal dyspnea. No history of stroke. Patient does have a history of coronary artery disease, status post PCI in the past, she has hyperlipidemia, on statin. Patient is a current everyday smoker. Patient is admitted for Right carotid endarterectomy. This was discussed with the patient. The risk of the operation includeing stroke, , bleeding, heart attack renal failure etc was disucssed with the patient by Dr Hernandez. The patient agreed to proceed. 11/23/22 Right Carotid endarterectomy 11/24/22 POD 1 AAOx 3 Paitent doing well, denies complaints. respiratory: on room air Cardiac: Sinus rhythm ILSSY polo - DC Post op No facial droop, no toungue deviation, Patient seen and examined by Dr Hernandez. Okay to DC patient home today. Post op care disucssed with patient. Consultants: cardiovascular surgery, critical/health education aide Med Rec PCP PCP: PCP: Undefined Provider Med Rec Discharge meds: Continue taking these medications: DULoxetine DR (CYMBALTA) 60 MG CAP.DR 40 MILLIGRAM ORAL DAILY. ROSUVASTATIN (CRESTOR) 10 MG TAB 10 MILLIGRAM ORAL BEDTIME. amLODIPine (NORVASC) 5 MG TAB 5 MILLIGRAM ORAL DAILY. EZETIMIBE (ZETIA) 10 MG TAB 10 MILLIGRAM ORAL DAILY. ASPIRIN EC (ECOTRIN) 81 MG TAB.EC 81 MILLIGRAM ORAL DAILY. BUDESONIDE/FORMOTEROL (SYMBICORT 160/4.5 MCG/ACT 10.2GM) 160 MCG-4.5 MCG/ ACTUATION INHALER 2 PUFF INHALATION RT - TWICE DAILY. ALBUTEROL (VENTOLIN HFA 90 MCG/ACT 18 GM) 90 MCG INHALER 1 PUFF INHALATION RT - EVERY 4 HOURS NEEDED. as needed for COPD CHOLECALCIFEROL (VITAMIN D3) (VITAMIN D3) 10 MCG (400 UNIT) TAB 400 UNITS ORAL DAILY. Start taking the following new medications: CLOPIDOGREL (PLAVIX) 75 MG TAB 75 MILLIGRAM ORAL DAILY. Days = 30 Qty = 30 No Refills Objective VS/I O Last Documented: Result Date Time Temp 98.0 11/24 1200 O2 Delivery Nasal cannula 11/24 0800 O2 Flow Rate 2 11/24 0800 Pulse Ox 96 11/24 0400 B/P 132/56 11/24 0400 B/P Mean 83 11/24 0400 Pulse 64 11/24 0400 Resp 30 11/24 0400 24 hour I O ending at 0700: 11/24 0700 11/23 1900 Intake Total 250 Output Total 750 620 Balance -500 -620 Intake, Oral 250 Number Voids 1 Output, 20 Drainage Output, Urine 750 600 PATIENT WEIGHT: Weight (lb): 193 Weight (oz): 5.53 Weight (kg): 87.700 General appearance: alert, awake, oriented Head/Eyes: clear cornea, EOMI ENT: moist mucosal membranes Neck: full range of motion Cardiovascular: regular rate rhythm Respiratory: clear to auscultation, no distress GI: soft, non-tender Extremities: moves all Skin: dry, intact Discharge Instructions PCP PCP: PCP: Undefined Provider )( Discharge to: Home/Self Care Discharge Instructions Additional Discharge Routines: Attending Follow-Up Follow-up Appointments Attending Physician: Attending Physician: Kayleen Hernandez MD Attending physician follow up timeframe: In 1-2 weeks at 1321 at 1350 RPT #:[id number] END OF REPORT [facility] 2022-11-24 09:14:00 [facility] ([facility]) Critical Care Progress Note REPORT#:[id number] REPORT STATUS: Signed DATE:11/24/22 TIME: 913 PATIENT: KAMAR MURILLO UNIT #: [id number] ROOM[address] : [birth year] AGE: 62 SEX: F ATTEND: Kayleen Hernandez MD ADM AUTHOR: Sherry Rodriguez CNP * ALL edits or amendments must be made on the electronic/computer document * Subjective HPI: This is a very pleasant 62-year-old female with PMH of CAD, HTN, HLP, who was followed by her master fire control technician Dr. Winters. On routine follow-up a carotid Doppler showed significant carotid artery stenosis. She underwent angiogram and was found to have significant 70-80% right internal carotid artery stenosis. She denies any symptoms of chest pains, denies any shortness of breath, denies any paroxysmal nocturnal dyspnea. No history of stroke. Patient does have a history of coronary artery disease, status post PCI in the past, she has hyperlipidemia, on statin. Patient is a current everyday smoker. Objective General VS/I O Last Documented: Result Date Time Temp 98.2 11/24 0400 Pulse Ox 96 11/24 0400 B/P 132/56 11/24 0400 B/P Mean 83 11/24 0400 Pulse 64 11/24 0400 Resp 30 11/24 0400 O2 Delivery Nasal cannula 11/23 2217 O2 Flow Rate 3 11/23 2218 24 hour I O ending at 0700: 11/24 0700 11/23 1900 Intake Total 250 Output Total 750 620 Balance -500 -620 Intake, Oral 250 Number Voids 1 Output, 20 Drainage Output, Urine 750 600 PATIENT WEIGHT: Weight (lb): 193 Weight (oz): 5.53 Weight (kg): 87.700 Medications: Active Meds + DC'd Last 24 Hrs Clopidogrel Bisulfate (Plavix) 75 MG DAILY PO Albuterol/Ipratropium (DUONEB) 3 ML RTQ6H PRN PRN NEB Phenol (CHLORASEPTIC) 1 SPRAY Q4H PRN PRN PO Docusate Sodium (COLACE) 100 MG BID PO Mupirocin (BACTROBAN 2% 22 GM OINTMENT) 1 APPLIC BID NASAL Acetaminophen (TYLENOL) 650 MG Q4H PRN PRN PO Bisacodyl (DULCOLAX) 10 MG DAILY PRN PRN RECTAL Hydrocodone Bitart/Acetaminophen (NORCO 5/325) 1 TAB Q4H PRN PRN PO Magnesium Hydroxide (MILK OF MAGNESIA) 30 ML Q6H PRN PRN PO Ondansetron HCl (ZOFRAN) 4 MG Q6H PRN PRN IV Diphenhydramine HCl (BENADRYL) 12.5 MG PACU ONCE PRN IV (DC) Fentanyl Citrate (SUBLIMAZE) 100 MCG PACU Q10MIN PRN PRN IV (DC) Fentanyl Citrate (SUBLIMAZE) 50 MCG PACU Q10MIN PRN PRN IV (DC) Hydralazine HCl (APRESOLINE) 5 MG PACU Q10MIN PRN PRN IV (DC) Hydrocodone Bitart/Acetaminophen (NORCO 5/325) 1 TAB PACU ONCE PO (DC) Hydromorphone HCl (DILAUDID) 1 MG PACU Q10MIN PRN PRN IV (DC) Hydromorphone HCl (DILAUDID) 0.5 MG PACU Q5MIN PRN PRN IV (DC) Insulin Human Lispro (HUMALOG) 0 PACU ONCE PRN SUBQ (DC) Labetalol HCl (LABETALOL HCL) 5 MG PACU Q10MIN PRN PRN IV (DC) Meperidine HCl (MEPERIDINE HCL/PF) 12.5 MG PACU ONCE PRN IV (DC) Morphine Sulfate (morphine SULFATE) 2 MG PACU Q10MIN PRN PRN IV (DC) Ondansetron HCl (ZOFRAN) 4 MG PACU ONCE PRN IV (DC) Promethazine HCl (PHENERGAN) 25 MG PACU ONCE PRN PO (DC) Ropivacaine (NAROPIN 0.5% 150 MG/30mL) 150 MG ASDIR PRN LOCAL (DC) Tramadol HCl (ULTRAM) 50 MG PACU ONCE PO (DC) Cefazolin Sodium (KEFZOL OR ANCEF) 2 GM PREOP ONCALL IV (CKD) Sodium Chloride (SODIUM CHLORIDE) 20 ML ASDIR IV Results Findings/data: Laboratory Tests 11/24 11/23 0537 0937 Chemistry Sodium (134 - 147 mEq/L) 140 143 Potassium (3.4 - 5.0 mEq/L) 4.2 4.0 Chloride (100 - 108 mEq/L) 109 H 114 H Carbon Dioxide (21 - 33 mEq/l) 24 22 Anion Gap (0 - 20) 12 11 BUN (7 - 18 mg/dL) 13 18 Creatinine (0.6 - 1.3 mg/dL) 0.9 0.8 Glomerular Filtr Rate (80 - 90) 71.4 L 82.2 Glucose (70 - 110 mg/dL) 160 H 142 H Calcium (8.0 - 10.5 mg/dL) 9.0 8.4 Laboratory Tests 11/24 11/23 0537 0937 Hematology WBC (4.5 - 11.0 x10 3/uL) 19.7 H RBC (3.54 - 5.02 x10 6/uL) 3.87 Hgb (11.0 - 15.0 g/dL) 11.9 12.2 Hct (33.0 - 45.0 %) 35.2 36.0 MCV (81.0 - 99.0 fL) 91.0 MCH (27.0 - 33.0 pg) 30.7 MCHC (33.0 - 37.0 g/dL) 33.8 RDW (11.5 - 14.5 %) 13.0 Plt Count (150 - 400 x10 3/uL) 263 MPV (7.0 - 9.0 fL) 9.0 Neut % (Auto) (56.0 - 77.0 %) 83.8 H Lymph % (Auto) (14.0 - 32.0 %) 9.7 L Preston % (Auto) (4.8 - 9.0 %) 5.6 Eos % (Auto) (0.3 - 3.7 %) 0.0 L Baso % (Auto) (0.0 - 2.0 %) 0.2 Neut # (Auto) (2.0 - 7.6 x10 3/uL) 16.49 H Lymph # (Auto) (1.0 - 3.8 x10 3/uL) 1.90 Preston # (Auto) (0.1 - 0.8 x10 3/uL) 1.11 H Eos # (Auto) (0.0 - 0.2 x10 3/uL) 0.00 Baso # (Auto) (0.0 - 0.2 x10 3/uL) 0.03 Abs Immat Gran (auto) (0.00 - 0.03 x10 3/uL) 0.14 H Add Manual Diff NO Immature Gran % (0.0 - 2.0 %) 0.7 Nucleated RBC % (0 - 0 %) 0.0 Nucleated RBCs # (Man) (0.0 - 0.1 x10 3/uL) 0.00 Laboratory Tests 11/24/22 0537: [Embedded Image Not Available] 11/23/22 0937: [Embedded Image Not Available] Free Text Obj Notes Free Text Obj Notes: General appearance: alert, awake, oriented Head/Eyes: atraumatic, clear cornea ENT: moist mucosal membranes, normal dentition Neck: full range of motion, non-tender, right neck incision with LISSY drain Cardiovascular: normal capillary refill, regular rate rhythm Respiratory: clear to auscultation, no distress Abdomen/GI: active bowel sounds, soft Extremities: moves all, no edema-all extremities Neuro/PATIENT SUPPORT REPRESENTATIVE: alert, oriented X 3 Skin: dry, intact Psychiatry: no hallucinations, normal affect Diagnosis, Assessment Plan Free text A P: This is a very pleasant 62-year-old female with PMH of CAD, HTN, HLP, who was followed by her master fire control technician Dr. Winters. On routine follow-up a carotid Doppler showed significant carotid artery stenosis. She underwent angiogram and was found to have significant 70-80% right internal carotid artery stenosis. She denies any symptoms of chest pains, denies any shortness of breath, denies any paroxysmal nocturnal dyspnea. No history of stroke. Patient does have a history of coronary artery disease, status post PCI in the past, she has hyperlipidemia, on statin. Patient is a current everyday smoker. 11/24/2022 Patient alert, awake, oriented. On RA, saturating well. OOB to chair. S/P Right carotid endarterectomy, neck incision covered, dry and intact, with LSISY drain. Plan for LISSY removal today and possible discharge home per CTS consult. Neuro: S/P right carotid endarterectomy with LISSY drain - monitor output Neurovascular checks Q2H AO x3, no distress Judicious pain control Cardio: On Plavix Cardio following Resp: RA, saturating well PRN Neb treatment for wheezing/SOB GI: ESTELLA Bowel care : Monitor renal function, I O, weigh daily Monitor electrolytes and replete as needed Heme/ID: Afebrile Leukocytosis - monitor Monitor CBC and transfuse as needed Musc: Skin care Activity as tolerated DVT prophylaxis: SCD Dispo: Home. Patient is full code. I spent 33 minutes of critical care reviewing labs, imaging and discussing plan of care with ICC team, patient, family and nurse. Consultants: cardiovascular surgery, critical/health education aide Code status: full code Plan discussed with: patient, consultants, nurse, interdisc care team Critical care time: Minutes: 33 at 1447 RPT #:[id number] END OF REPORT [facility] 2022-11-23 18:33:00 [facility] ([facility]) Critical Care Consult Note REPORT#:[id number] REPORT STATUS: Signed DATE:11/23/22 TIME: 1832 PATIENT: KAMAR MURILLO UNIT #: [id number] ROOM/BED: [place] [address] : [birth year] AGE: 62 SEX: F ATTEND: Kayleen Hernandez MD ADM AUTHOR: Panchito Bridges MD * ALL edits or amendments must be made on the electronic/computer document * History of Present Illness HPI Requesting clinician: Dr Hernandez Reason for consult: S/p right CEA Chief complaint: Severe right internal carotid artery stenosis HPI: 62-year-old female past medical history of coronary artery disease, hypertension , hyperlipidemia who was found to have significant right carotid artery stenosis on routine work-up. Patient underwent right carotid endarterectomy today. She was Brought to CCU extubated. Denies any headache or blurring of vision or weakness or numbness. History - Adult longitudinal Past medical history: Reports: Hypertension, Dyslipidemia. Smoking status for patients 13 years old or older: Current every day smoker Date last smoked: 11/20/22 Allergies: Coded Allergies: No Known Allergies (11/20/22) Review of Systems ROS Constitutional: Denies: chills, fatigue, fever, generalized weakness. Respiratory: Denies: hemoptysis, non productive cough, parox nocturnal dyspnea, pleurisy. Cardiovascular: Denies: chest pain, VOGEL (dyspnea on exertion), edema, orthopnea. GI: Denies: abdominal pain, anorexia, constipation, diarrhea. Musculoskeletal: Denies: extremity pain, extremity swelling. Objective Physical Exam VS/I O: Last Documented: Result Date Time Temp 36.7 11/24 1200 Pulse Ox 95 11/24 0902 B/P 125/59 11/24 0902 B/P Mean 85 11/24 0902 Pulse 63 11/24 0902 Resp 27 11/24 0902 O2 Delivery Nasal cannula 11/24 0800 O2 Flow Rate 2 11/24 0800 Patient Weight and BMI Weight (kg): 87.700 BMI: 33.2 Medications: Active Meds + DC'd Last 24 Hrs Clopidogrel Bisulfate (Plavix) 75 MG DAILY PO Docusate Sodium (COLACE) 100 MG BID PO Mupirocin (BACTROBAN 2% 22 GM OINTMENT) 1 APPLIC BID NASAL Acetaminophen (TYLENOL) 650 MG Q4H PRN PRN PO Bisacodyl (DULCOLAX) 10 MG DAILY PRN PRN RECTAL Hydrocodone Bitart/Acetaminophen (NORCO 5/325) 1 TAB Q4H PRN PRN PO Magnesium Hydroxide (MILK OF MAGNESIA) 30 ML Q6H PRN PRN PO Ondansetron HCl (ZOFRAN) 4 MG Q6H PRN PRN IV Fentanyl Citrate (SUBLIMAZE) 0 .STK-MED ONE .ROUTE (DC) Diphenhydramine HCl (BENADRYL) 12.5 MG PACU ONCE PRN IV (DC) Fentanyl Citrate (SUBLIMAZE) 100 MCG PACU Q10MIN PRN PRN IV (DC) Fentanyl Citrate (SUBLIMAZE) 50 MCG PACU Q10MIN PRN PRN IV (DC) Hydralazine HCl (APRESOLINE) 5 MG PACU Q10MIN PRN PRN IV (DC) Hydrocodone Bitart/Acetaminophen (NORCO 5/325) 1 TAB PACU ONCE PO (DC) Hydromorphone HCl (DILAUDID) 1 MG PACU Q10MIN PRN PRN IV (DC) Hydromorphone HCl (DILAUDID) 0.5 MG PACU Q5MIN PRN PRN IV (DC) Insulin Human Lispro (HUMALOG) 0 PACU ONCE PRN SUBQ (DC) Labetalol HCl (LABETALOL HCL) 5 MG PACU Q10MIN PRN PRN IV (DC) Meperidine HCl (MEPERIDINE HCL/PF) 12.5 MG PACU ONCE PRN IV (DC) Morphine Sulfate (morphine SULFATE) 2 MG PACU Q10MIN PRN PRN IV (DC) Ondansetron HCl (ZOFRAN) 4 MG PACU ONCE PRN IV (DC) Promethazine HCl (PHENERGAN) 25 MG PACU ONCE PRN PO (DC) Ropivacaine (NAROPIN 0.5% 150 MG/30mL) 150 MG ASDIR PRN LOCAL (DC) Tramadol HCl (ULTRAM) 50 MG PACU ONCE PO (DC) Hydralazine HCl (APRESOLINE) 0 .STK-MED ONE .ROUTE (DC) Sodium Chloride (SODIUM CHLORIDE 0.9%) 500 ML .STK-MED ONE IV (DC) Fentanyl Citrate (SUBLIMAZE) 0 .STK-MED ONE .ROUTE (DC) Propofol (DIPRIVAN 200MG/20ML INJECTION) 20 ML .STK-MED ONE IV (DC) Dexamethasone Sodium Phosphate (DECADRON) 0 .STK-MED ONE .ROUTE (DC) Heparin Sodium (HEPARIN SODIUM) 0 .STK-MED ONE .ROUTE (DC) Lidocaine HCl (XYLOCAINE) 0 .STK-MED ONE .ROUTE (DC) Ondansetron HCl (ZOFRAN) 0 .STK-MED ONE .ROUTE (DC) Rocuronium [place] (ZEMURON) 0 .STK-MED ONE IV (DC) Succinylcholine Chloride (QUELICIN FLIPTOP) 0 .STK-MED ONE IV (DC) Norepinephrine Bitartrate (NOREPINEPHRINE 8 MG/NS 250 ML) 250 ML .STK-MED ONE IV (DC) Heparin Sodium (HEPARIN SODIUM) 0 .STK-MED ONE .ROUTE (DC) Lidocaine HCl (XYLOCAINE MPF 1% 5ML) 0 .STK-MED ONE .ROUTE (DC) Cefazolin Sodium (KEFZOL OR ANCEF) 2 GM PREOP ONCALL IV (CKD) Sodium Chloride (SODIUM CHLORIDE) 20 ML ASDIR IV Results Findings/Data: Laboratory Tests 11/23/22 0937: [Embedded Image Not Available] Laboratory Tests 11/23 11/23 11/23 0937 0601 0407 Chemistry Sodium (134 - 147 mEq/L) 143 Potassium (3.4 - 5.0 mEq/L) 4.0 Chloride (100 - 108 mEq/L) 114 H Carbon Dioxide (21 - 33 mEq/l) 22 Anion Gap (0 - 20) 11 BUN (7 - 18 mg/dL) 18 Creatinine (0.6 - 1.3 mg/dL) 0.8 Glomerular Filtr Rate (80 - 90) 82.2 Glucose (70 - 110 mg/dL) 142 H POC Glucose (70 - 110 MG/DL) 105 Calcium (8.0 - 10.5 mg/dL) 8.4 Triglycerides (40 - 150 mg/dL) 203 H Cholesterol (<200 mg/dL) 121 LDL Cholesterol [place] (0 - 100 mg/dL) 55.0 HDL Cholesterol (39 - 96 mg/dL) 37.3 L Cholesterol/HDL Ratio (3.27 - 4.44 RATIO) 3.24 L Laboratory Tests 11/23 0740 Coagulation Activated Coag Time (74 - 137 SEC) 323 H Laboratory Tests 11/23 0937 Hematology Hgb (11.0 - 15.0 g/dL) 12.2 Hct (33.0 - 45.0 %) 36.0 Free Text Obj Notes Free Text Obj Notes: GEN: Female in no acute distress, interactive and conversational HEENT: Atraumatic, normocephalic, moist mucous membranes NECK: Supple, good range of motion, no tenderness LUNGS: Symmetrical air entry, no acute respiratory distress CV: S1, S2 regular rate and rhythm GI: Abdomen is soft, not tender or distended EXT/Musc: No edema or cyanosis. Pedal pulses present Skin: Surgical site clean, dry and intact. Warm to touch NEURO: Awake, alert and oriented x3. No facial droop or focal deficit Diagnosis, Assessment Plan Free text DxA P: 62-year-old female admitted with S/p right CEA Severe right internal carotid artery stenosis Hypertension Coronary artery disease Hyperlipidemia Neurochecks every hour as per protocol. If any change in neurological status inform statin will need imaging. Continue keep the blood pressure systolic less than 140. Patient is on 4 L wean down as tolerated. Incentive spirometry. Continue monitor the drain output Diet as tolerated. Creatinine stable. Monitor electrolytes. SCDs for DVT prophylaxis. Ambulate. Total critical care time 36 minutes excluding procedures at 1855 RPT #:[id number] END OF REPORT [facility] 2022-11-23 11:34:00 [facility] ([facility]) DT Operative Note REPORT#:[id number] REPORT STATUS: Signed DATE:11/23/22 TIME: 1134 PATIENT: KAMAR MURILLO UNIT #: [id number] ROOM/BED: [facility]3-1 : 58 AGE: 62 SEX: F ATTEND: Kayleen Hernandez MD ADM AUTHOR: Kayleen Hernandez MD * ALL edits or amendments must be made on the electronic/computer document * Operative Report Operative Note Note: Preoperative diagnosis: Asymptomatic severe Right internal carotid artery stenosis Postoperative diagnosis: Asymptomatic severe Right internal carotid artery stenosis Operation: Right carotid endarterectomy Surgeon: Kayleen Henrandez MD Yeast Stacker: Princess Duncan Anesthesiologist: Prince stuart MD Anesthesia: General endotracheal anesthesia Estimated blood loss: 20 cc Indication: Ms Murillo is a very pleasant 62-year-old female severe right internal carotid artery stenosis. After due preop counseling she was brought to the operating room today for right carotid endarterectomy. Findings: 1. Calcified plaque at the bifurcation of the right common carotid artery leading to a pinhole opening in the right internal carotid artery. 2. Good endpoint in the right internal carotid artery following endarterectomy. 3. The hypoglossal nerve was identified and protected throughout the procedure. 4. The tongue was in the midline and patient was moving all extremities at the end of the procedure. Procedure: Ms Murillo was identified in the preop holding area and brought to the operating room and placed supine on the operating table. After induction of general endotracheal anesthesia at the right side of the neck was prepped and draped in standard surgical fashion. A 4 cm incision was made along the anterior border of the middle third right sternocleidomastoid. Platysma was divided with Bovie cautery. The deep cervical fascia was opened. The facial vein was identified dissected ligated and divided. Hypoglossal nerve was identified and protected throughout the procedure. The right common carotid artery, the right internal carotid artery, and right external carotid artery were identified, dissected and isolated. Patient was heparinized with 7000 units of heparin. After waiting for 3 minutes the bifurcation of the right common carotid artery was isolated with 3 profunda clamp. Arteriotomy was performed on the right common carotid artery and extended onto the right internal carotid artery using Durand scissors. A Rojas shunt was then placed in the right common and internal carotid artery. Next using a Oneida dissector endarterectomy of the right common and internal carotid artery was performed. Endarterectomy of the right external carotid artery was performed using eversion technique. There was a good endpoint in the right internal carotid artery. Next patch repair of the right common and internal carotid artery was performed using bovine pericardial patch and running 6-0 Prolene suture. Prior to tying the patch down Rojas shunt was removed and careful dilation was performed. Next 7 LISSY drain was placed in the wound. Hemostasis was confirmed and the neck was closed in layers using #2 Vicryl for the platysma and 4-0 Vicryl for the skin. Patient was extubated in the operating room and moved to PACU in stable condition. at 1137 RPT #:[id number] END OF REPORT [facility] 2022-11-23 07:20:00 [facility] ([facility]) History Physical - Adult REPORT#:[id number] REPORT STATUS: Signed DATE:11/23/22 TIME: 719 PATIENT: KAMAR MURILLO UNIT #: [id number] ROOM/BED: [place] [address] : 58 AGE: 62 SEX: F ATTEND: Kayleen Hernandez MD ADM AUTHOR: Amparo Whitlock Physic * ALL edits or amendments must be made on the electronic/computer document * Amparo Whitlock 11/23/22 0720: History of Present Illness HPI HPI: This is a very pleasant 62-year-old female with PMH of CAD, HTN, HLP, who was followed by her master fire control technician Dr. Winters. On routine follow-up a carotid Doppler showed significant carotid artery stenosis. She underwent angiogram and was found to have significant 70-80% right internal carotid artery stenosis. She denies any symptoms of chest pains, denies any shortness of breath, denies any paroxysmal nocturnal dyspnea. No history of stroke. Patient does have a history of coronary artery disease, status post PCI in the past, she has hyperlipidemia, on statin. Patient is a current everyday smoker. History Past medical history: Reports: Hypertension, Dyslipidemia. Smoking status for patients 13 years old or older: Current every day smoker Date last smoked: 11/20/22 Medication/Allergy-Vaccine Hx Allergies: Coded Allergies: No Known Allergies (11/20/22) Review of Systems Constitutional: Denies: fever, generalized weakness. Skin: Denies: rash, swelling. Eyes: Denies: itching, diplopia. ENT: Denies: ear ringing, earache. Respiratory: Denies: VOGEL (dyspnea on exertion), hemoptysis. Cardiovascular: Denies: VOGEL (dyspnea on exertion), edema. GI: Denies: constipation, diarrhea. : Denies: dysuria, hematuria. Heme: Denies: bleeding, bruising. Endocrine: Denies: polydipsia, polyuria. Neuro: Denies: confusion, dizziness. Psych: Denies: agitation, anxiety. All systems rev neg: except as marked Physical Exam VS/I O PATIENT WEIGHT: Weight (lb): 193 Weight (oz): 5.53 Weight (kg): 87.700 General appearance: alert, awake, oriented Head/Eyes: atraumatic, clear cornea ENT: moist mucosal membranes, normal dentition Neck: full range of motion, non-tender Cardiovascular: normal capillary refill, regular rate rhythm Respiratory: clear to auscultation, no distress Abdomen/GI: active bowel sounds, soft Extremities: moves all, no edema-all extremities Neuro/PATIENT SUPPORT REPRESENTATIVE: alert, oriented X 3 Skin: dry, intact Psychiatry: no hallucinations, normal affect Diagnosis, Assessment Plan Free Text DxA P Notes Free Text DxA P Notes: This is a very pleasant 62-year-old female with PMH of CAD, HTN, HLP, who was followed by her master fire control technician Dr. Winters. On routine follow-up a carotid Doppler showed significant carotid artery stenosis. She underwent angiogram and was found to have significant 70-80% right internal carotid artery stenosis. She denies any symptoms of chest pains, denies any shortness of breath, denies any paroxysmal nocturnal dyspnea. No history of stroke. Patient does have a history of coronary artery disease, status post PCI in the past, she has hyperlipidemia, on statin. Patient is a current everyday smoker. Patient is admitted for Right carotid endarterectomy. This was discussed with the patient. The risk of the operation includeing stroke, , bleeding, heart attack renal failure etc was disucssed with the patient by Dr Hernandez. The patient agreed to proceed. Kayleen Hernandez 12/13/22 1715: Attestations Physician Attestation Agree w/findings plan: I have seen and examined Ms. Murillo. I agree with the findings and plan as documented by RAFAEL Hein. Briefly, 62-year-old female with severe right internal carotid artery stenosis. Patient is being admitted to the hospital for right carotid endarterectomy. I have explained to her the procedure, risk involved, benefits, alternatives, and complications. at 0727 at 1731 RPT #:[id number] END OF REPORT [facility] 2022-11-20 15:36:00 [id number] [place] [address] PATIENT NAME: KAMAR MURILLO ADMIT DATE: ACCOUNT NO: [id number] ROOM NO: AGE: 62 REPORT TYPE: eELECTROCARDIOGRAM REPORT SEX: F ADMITTING PHYSICIAN:Kayleen Hernandez MD ATTENDING PHYSICIAN:Kayleen Hernandez MD Order: [id number] Test Reason : PREOP Test Date/Time Stamp: SatNov 20 2022 15:36:15 Blood Pressure : / mmHG Vent. Rate : 077 BPM Atrial Rate : 077 BPM P-R Int : 138 ms QRS Dur : 088 ms QT Int : 374 ms P-R-T Axes : 077 069 080 degrees QTc Int : 423 ms Normal sinus rhythm Normal ECG No previous ECGs available Confirmed by MD RUFINA, CORNELIUS ([id number]) on 11/20/2022 5:13:11 PM Referred By: Erasmo Hernandez Confirmed by:CORNELIUS LIM MD at 1713 PATIENT NAME: KAMAR MURILLO [facility]
[2024-10-07] MEDS ORDERED: KETOROLAC 30 MG/ML INJ ONE (17:05)
[2024-10-07] MEDS ORDERED: dexAMETHasone 10 MG/ML VIAL ONE (17:05)
[2024-10-07] MEDS ORDERED: ONDANSETRON 4 MG/2 ML VIAL ONE ×2 (17:05→18:52)
--- NOTE | 2024-10-07 17:18 | RAD REPORT ---
EXAM: C Spine Wo Con HISTORY: PAIN COMPARISON: None TECHNIQUE: Multiple contiguous axial images were obtained in a CT of the cervical spine without IV co ntrast. Sagittal and coronal reformats were performed. One or more of the following dose reduction techniques were used: Automated exposure control, adjustment of the mA and kV according to patient si ze, and iterative reconstruction. Unless otherwise specified, incidental findings do not require dedicated imaging follow-up. FINDINGS: The vertebral bodies and intervertebral discs demonstrate normal height and alignment without fractur e or subluxation. Incidentally noted bilateral cervical ribs at C7. Multilevel moderate degenerative changes, most pronounced at C5-6 with disc height loss and moderate to severe bilateral neural foraminal narrowing. Up to severe bilateral neural foraminal narrowing at C6-7, due to uncovertebral joint and facet arthropathy. No prevertebral soft tissue swelling is seen. The posterior facets are well aligned. Normal alignment of the skull base with the cervical spine is seen. The lung apices are unremarkable. The cervical soft tissues are unremarkable. IMPRESSION: No evidence of acute osseous abnormality of the cervical spine. Degenerative changes as above.
[2024-10-07 17:34] LABS: Absolute Basophils 0.1 K/uL (0-0.5); Absolute Eosinophils 0.3 K/uL (0-0.5); Absolute Lymphocytes (CBC) 2.4 K/uL (0.7-4.9); Absolute Monocytes 0.7 K/uL (0.1-1.3); Absolute Neutrophil 6.8 K/uL (1.8-8.0); Basophils % 0.9 % (0-1.3); Eosinophils % 2.5 % (0-4.4); Hematocrit 39.3 % (36.0-45.0); Hemoglobin 14.1 g/dL (12.0-15.0); Lymphocytes % 23.2 % (15.3-44.8); MCH 31.5 pg (27.0-35.0); MCHC 35.8 g/dL (32.0-36.0); MCV 87.9 fL (80-100); Monocytes % 7.2 % (3.3-12.3); Neutrophils % 66.2 % (41.7-73.7); Nucleated Red Blood Cells % 0.1 % (0-0); Platelets 251 thou/uL (152-406); RBC Red Blood Cell Count 4.47 M/uL (3.86-4.86); Red Cell Distribution Width 13.5 % (12.1-15.2)
[2024-10-07 17:53] LABS: Albumin 3.6 g/dL (3.4-5.0); Bilirubin Total 0.5 mg/dL (0.2-1.0); Globulin 3.6 g/dL (2.3-3.5); Protein, Total 7.2 g/dL (6.4-8.2); Troponin High Sensitivity 5.1 pg/mL (<58.9)
--- NOTE | 2024-10-07 18:22 | RAD REPORT ---
EXAMINATION: XR LEFT SHOULDER CLINICAL INDICATION: Female, 64 years old. PAIN TECHNIQUE: Internal and external AP view radiograph of the left shoulder were obtained. COMPARISON: No prior exam. FINDINGS: No evidence of fracture or dislocation. Normal alignment. Mild AC joint degenerative change s. No Other focal bone lesion. Soft tissues are unremarkable. IMPRESSION: No acute osseous abnormalities.
--- NOTE | 2024-10-07 18:25 | ER ---
Nurse's Notes [facility] Name: Taryn Murillo Age: 64 yrs Sex: Female : 1960 Arrival Date: 10/07/2024 Time: 14:56 Bed 12 Private MD: Diagnosis: Cervical disc disorder with radiculopathy, unspecified cervical region;Strain of muscle, fascia and tendon at neck level, initial encounter;Pain in left shoulder Presentation: 10/07 15:03 Chief complaint: Patient states: left neck pain that radiates down to her left me1 shoulder. States her shoulder pops when she moves it and she has had to get a cortisone shot in it before. Pain started again about 2 weeks. Denies injury. Denies CP and SOB. Coronavirus screen: At this time, the client does not indicate any symptoms associated with coronavirus-19. Ebola Screen: No symptoms or risks identified at this time. Initial Sepsis Screen: Does the patient meet any 2 criteria? No. Patient's initial sepsis screen is negative. Does the patient have a suspected source of infection? No. Patient's initial sepsis screen is negative. Risk Assessment: Do you want to hurt yourself or someone else? Patient reports no desire to harm self or others. Onset of symptoms is unknown. 15:03 Method Of Arrival: Ambulatory me1 15:03 Acuity: WALT 4 me1 16:02 Acuity: WALT 3 iw Historical: - Allergies: 15:06 No Known Allergies; me1 - PMHx: 15:06 Chronic pain; COPD; Hypercholesterolemia; Hypertensive disorder; me1 - PSHx: 15:06 hysterectomy; stents; me1 - Immunization history:: Adult Immunizations up to date. - Infectious Disease History:: Denies. - Social history:: Smoking status: Patient/guardian denies using tobacco, Stopped _ months ago 1.5. Screenin:22 [facility] ED Fall Risk Assessment (Adult) History of falling in the last 3 months, ld1 including since admission No falls in past 3 months (0 pts) Confusion or Disorientation No (0 pts) Intoxicated or Sedated No (0 pts) Impaired Gait No (0 pts) Mobility Assist Device Used No (0 pt) Altered Elimination No (0 pt) Score/Fall Risk Level 0 - 2 = Low Risk Oriented to surroundings, Hourly rounding (assess needs \T\ fall precautionary measures) done. Abuse screen: Denies threats or abuse. Denies injuries from another. Nutritional screening: No deficits noted. Tuberculosis screening: No symptoms or risk factors identified. Assessment: 17:22 General: Appears in no apparent distress. comfortable, Behavior is calm, cooperative, ld1 appropriate for age. Pain: Complains of pain in scalp and base of the skull Pain does not radiate. Pain currently is 8 out of 10 on a pain scale. Quality of pain is described as throbbing, Pain began suddenly, Is continuous. Neuro: Level of Consciousness is awake, alert, obeys commands, Oriented to person, place, time, situation. Cardiovascular: Capillary refill < 3 seconds Patient's skin is warm and dry. Respiratory: Airway is patent Respiratory effort is even, unlabored. GI: Abdomen is round non-distended. : No signs and/or symptoms were reported regarding the genitourinary system. EENT: No signs and/or symptoms were reported regarding the EENT system. Derm: No signs and/or symptoms reported regarding the dermatologic system. Musculoskeletal: No signs and/or symptoms reported regarding the musculoskeletal system. 18:45 Reassessment: Patient appears in no apparent distress at this time. Patient and/or kj2 family updated on plan of care and expected duration. Pain level reassessed. Patient is alert, oriented x 3, equal unlabored respirations, skin warm/dry/pink. Vital Signs: 15:03 BP 140 / 73; Pulse 72; Resp 18; Temp 98; Pulse Ox 95% ; Weight 89.36 kg; Height 5 ft. 3 me1 in. ; Pain 9/10; 17:22 BP 139 / 72; Pulse 71; Resp 18; Pulse Ox 99% on R/A; Pain 8/10; ld1 18:45 BP 136 / 70; Pulse 72; Resp 18; Temp 98; Pulse Ox 100% ; kj2 15:03 Body Mass Index 34.90 (89.36 kg, 160.02 cm) me1 15:03 Pain Scale: Adult me1 17:22 Pain Scale: Adult ld1 ED Course: 14:58 Patient arrived in ED. im 15:05 Triage completed. me1 15:06 Arm band placed on Patient placed in waiting room. me1 15:08 Sahil Ogden MD is Attending Physician. [facility] 15:32 CT C Spine In Process Unspecified. EDMS 16:52 Val Guido, RN is Primary Nurse. ld1 17:20 Troponin High Sensitivity Sent. ld1 17:20 Inserted saline lock: 22 gauge in left wrist, using aseptic technique. Blood collected. ld1 Flushed with 10 mL NS. 17:22 Shoulder Left (2 View) XRAY In Process Unspecified. EDMS 17:22 Patient has correct armband on for positive identification. Placed in gown. Bed in low ld1 position. Call light in reach. Side rails up X2. Pulse ox on. NIBP on. Door closed. Noise minimized. Warm blanket given. 17:22 No provider procedures requiring assistance completed. ld1 18:24 Yuniel Jerome MD is Referral Physician. [facility] 19:08 Provided Education on: discharge instructions. kj2 19:08 IV discontinued, intact, bleeding controlled, No redness/swelling at site. Pressure kj2 dressing applied. Administered Medications: 17:20 Drug: Decadron - Dexamethasone IVP 10 mg IVP once Route: IVP; Site: left wrist; ld1 19:05 Follow up: Response: No adverse reaction kj2 17:20 Drug: Ketorolac IVP 15 mg IVP once Route: IVP; Site: left wrist; ld1 19:05 Follow up: Response: No adverse reaction kj2 17:20 Drug: Ondansetron IVP 4 mg IVP once; over 2 minutes Route: IVP; Site: left wrist; ld1 19:05 Follow up: Response: No adverse reaction kj2 19:06 Drug: fentaNYL (PF) IVP 50 mcg IVP once Route: IVP; Site: left wrist; kj2 19:06 Follow up: Response: No adverse reaction kj2 19:06 Drug: Ondansetron IVP 4 mg IVP once; over 2 minutes Route: IVP; Site: left wrist; kj2 19:06 Follow up: Response: No adverse reaction kj2 Medication: 17:22 VIS not applicable for this client. ld1 Outcome: 18:24 Discharge ordered by . [facility] 19:07 Discharged to home ambulatory, kj2 19:07 Condition: stable 19:07 Discharge instructions given to patient, Instructed on discharge instructions, Demonstrated understanding of instructions, follow-up care, medications, Prescriptions given X 3, 19:08 Patient left the ED. kj2 Signatures: Dispatcher [employer] Sahil Garcia MD MD cha Williams, Irene, RN RN Val Vera RN RN ld1 Leeanne Mcgee Michelle, RN RN me1 Alda Thomas RN RN kj2
--- NOTE | 2024-10-07 18:25 | EDPHYS ---
Physician Documentation [facility] Name: Taryn Murillo Age: 64 yrs Sex: Female : 1960 Arrival Date: 10/07/2024 Time: 14:56 Bed 12 Private MD: ED Physician Sahil Ogden HPI: 10/07 16:43 This 64 yrs old Female presents to ER via Ambulatory with complaints of Neck hayley Pain, <24hrs Old, Shoulder Pain - left. 16:43 The patient or guardian complains of decreased range of motion, pain, that is acute. hayley The symptoms are located on the base of the skull. Onset: The symptoms/episode began/occurred 3 week(s) ago. Context: The problem was sustained at an unknown location. Associated signs and symptoms: The patient has no apparent associated signs or symptoms. Modifying factors: The symptoms are alleviated by remaining still, the symptoms are aggravated by movement. Severity of symptoms: At their worst the symptoms were moderate, in the emergency department the symptoms are unchanged. The patient has experienced similar episodes in the past, several times. Historical: - Allergies: 15:06 No Known Allergies; me1 - PMHx: 15:06 Chronic pain; COPD; Hypercholesterolemia; Hypertensive disorder; me1 - PSHx: 15:06 hysterectomy; stents; me1 - Immunization history:: Adult Immunizations up to date. - Infectious Disease History:: Denies. - Social history:: Smoking status: Patient/guardian denies using tobacco, Stopped _ months ago 1.5. ROS: 16:49 Constitutional: Negative for fever, chills, and weight loss, Eyes: Negative for injury, hayley pain, redness, and discharge, ENT: Negative for injury, pain, and discharge, Cardiovascular: Negative for chest pain, palpitations, and edema, Respiratory: Negative for shortness of breath, cough, wheezing, and pleuritic chest pain, Abdomen/GI: Negative for abdominal pain, nausea, vomiting, diarrhea, and constipation, Back: Negative for injury and pain, : Negative for injury, bleeding, discharge, and swelling, MS/Extremity: Negative for injury and deformity, Skin: Negative for injury, rash, and discoloration, Neuro: Negative for headache, weakness, numbness, tingling, and seizure, Psych: Negative for depression, anxiety, suicide ideation, homicidal ideation, and hallucinations, Allergy/Immunology: Negative for hives, rash, and allergies, Endocrine: Negative for neck swelling, polydipsia, polyuria, polyphagia, and marked weight changes, Hematologic/Lymphatic: Negative for swollen nodes, abnormal bleeding, and unusual bruising, 16:49 Neck: Positive for pain with movement, pain at rest, Exam: 16:49 Constitutional: This is a well developed, well nourished patient who is awake, alert, hayley and in no acute distress. Head/Face: Normocephalic, atraumatic. Eyes: Pupils equal round and reactive to light, extra-ocular motions intact. Lids and lashes normal. Conjunctiva and sclera are non-icteric and not injected. Cornea within normal limits. Periorbital areas with no swelling, redness, or edema. ENT: Nares patent. No nasal discharge, no septal abnormalities noted. Tympanic membranes are normal and external auditory canals are clear. Oropharynx with no redness, swelling, or masses, exudates, or evidence of obstruction, uvula midline. Mucous membranes moist. Chest/axilla: Normal chest wall appearance and motion. Nontender with no deformity. No lesions are appreciated. Cardiovascular: Regular rate and rhythm with a normal S1 and S2. No gallops, murmurs, or rubs. Normal PMI, no JVD. No pulse deficits. Respiratory: Lungs have equal breath sounds bilaterally, clear to auscultation and percussion. No rales, rhonchi or wheezes noted. No increased work of breathing, no retractions or nasal flaring. Abdomen/GI: Soft, non-tender, with normal bowel sounds. No distension or tympany. No guarding or rebound. No evidence of tenderness throughout. Back: No spinal tenderness. No costovertebral tenderness. Full range of motion. Female : Normal external genitalia. Skin: Warm, dry with normal turgor. Normal color with no rashes, no lesions, and no evidence of cellulitis. MS/ Extremity: Pulses equal, no cyanosis. Neurovascular intact. Full, normal range of motion., bilateral aka Neuro: Awake and alert, GCS 15, oriented to person, place, time, and situation. Cranial nerves II-XII grossly intact. Motor strength 5/5 in all extremities. Sensory grossly intact. Cerebellar exam normal. Normal gait. Psych: Awake, alert, with orientation to person, place and time. Behavior, mood, and affect are within normal limits. 16:49 Neck: External neck: is normal, C-spine: appears grossly normal, Thyroid: appears normal, Trachea: is midline with no obvious abnormalities, Lymph nodes: no appreciated lymphadenopathy, 17:01 ECG was reviewed by the Attending Physician. [facility] Vital Signs: 15:03 BP 140 / 73; Pulse 72; Resp 18; Temp 98; Pulse Ox 95% ; Weight 89.36 kg; Height 5 ft. 3 me1 in. ; Pain 9/10; 17:22 BP 139 / 72; Pulse 71; Resp 18; Pulse Ox 99% on R/A; Pain 8/10; ld1 18:45 BP 136 / 70; Pulse 72; Resp 18; Temp 98; Pulse Ox 100% ; kj2 15:03 Body Mass Index 34.90 (89.36 kg, 160.02 cm) me1 15:03 Pain Scale: Adult me1 17:22 Pain Scale: Adult ld1 MDM: 15:08 Medical Screening Exam initiated hayley 16:50 Differential diagnosis: C-Spine Fracture Cervical Disc Herniation Cervical Spondylosis hayley cervical strain, Degenerative Disc Disease Neck Abrasion Spondylolisthesis Spondylosis torticollis, Unstable Vertebral Fracture Vertical Compression Injury viral meningitis. Data reviewed: vital signs, nurses notes, lab test result(s), EKG. Consideration of Admission/Observation Escalation of care including admission/observation considered. Test considered but Not performed: MRI: NO MRI SPINE. Care significantly affected by the following chronic conditions: Hypertension, Chronic Obstructive Pulmonary Disease, HYPERCHOLESTEROL. 10/07 15:10 Order name: CBC with Diff; Complete Time: 17:41 [facility] 10/07 15:10 Order name: CMP; Complete Time: 18:23 [facility] 10/07 15:10 Order name: Troponin High Sensitivity; Complete Time: 18:23 [facility] 10/07 15:10 Order name: CT C Spine; Complete Time: 17:41 [facility] 10/07 16:29 Order name: Shoulder Left (2 View) XRAY; Complete Time: 18:23 [facility] 10/07 15:10 Order name: EKG; Complete Time: 15:11 [facility] 10/07 15:10 Order name: EKG - Nurse/Tech; Complete Time: 16:52 [facility] 10/07 18:25 Order name: Sling; Complete Time: 19:05 hayley EC:01 Rate is 65 beats/min. Rhythm is regular. QRS Pyrites is Normal. NM interval is normal. QRS hayley interval is normal. QT interval is normal. No Q waves. T waves are Normal. No ST changes noted. Clinical impression: Normal ECG and No evidence of ischemia. Interpreted by me. Reviewed by me. Administered Medications: 17:20 Drug: Decadron - Dexamethasone IVP 10 mg IVP once Route: IVP; Site: left wrist; ld1 19:05 Follow up: Response: No adverse reaction kj2 17:20 Drug: Ketorolac IVP 15 mg IVP once Route: IVP; Site: left wrist; ld1 19:05 Follow up: Response: No adverse reaction kj2 17:20 Drug: Ondansetron IVP 4 mg IVP once; over 2 minutes Route: IVP; Site: left wrist; ld1 19:05 Follow up: Response: No adverse reaction kj2 19:06 Drug: fentaNYL (PF) IVP 50 mcg IVP once Route: IVP; Site: left wrist; kj2 19:06 Follow up: Response: No adverse reaction kj2 19:06 Drug: Ondansetron IVP 4 mg IVP once; over 2 minutes Route: IVP; Site: left wrist; kj2 19:06 Follow up: Response: No adverse reaction kj2 Disposition Summary: 10/07/24 18:24 Discharge Ordered Notes: Location: Home hayley Problem: new hayley Symptoms: have improved hayley Condition: Stable hayley Diagnosis - Cervical disc disorder with radiculopathy, unspecified cervical region hayley - Strain of muscle, fascia and tendon at neck level, initial encounter hayley - Pain in left shoulder hayley Followup: hayley - With: Private Physician - When: 2 - 3 days - Reason: Recheck today's complaints, Continuance of care, Re-evaluation by your physician Followup: hayley - With: Yuniel Jerome MD - When: 2 - 3 days - Reason: Recheck today's complaints, Continuance of care, Re-evaluation by your physician Discharge Instructions: - Discharge Summary Sheet hayley - Cervical Radiculopathy hayley - Shoulder Pain hayley - Shoulder Pain, [id number] hayley - How to Use a Sling, [id number] hayley - Cervical Radiculopathy, [id number] hayley - Radicular Pain hayley - How to Use a Sling hayley Forms: - Medication Reconciliation Form hayley - Antibiotic Education hayley - Prescription Opioid Use hayley - Patient Portal Instructions hayley - Leadership Thank You Letter hayley Prescriptions: - diclofenac sodium 50 mg Oral tablet, delayed release (enteric coated) - take 1 tablet ORAL route 3 times per day; 21 tablet; Refills: 0, Product [facility] Selection Permitted - methocarbamol 750 mg Oral tablet - take 1 tablet ORAL route 4 times per day; 28 tablet; Refills: 0, Product [facility] Selection Permitted - Tylenol-Codeine #3 300mg-30mg Oral tablet - take 2 tablets ORAL route every 6 hours As needed; 20 tablet; Refills: 0, [facility] Product Selection Permitted - Dexamethasone 4mg Oral tablet - take 1 tablet ORAL route daily for 4 days; 4 tablet; Refills: 0, Product [facility] Selection Permitted Signatures: Dispatcher [employer] Sahil Garcia MD MD cha Sims, Lauren, RN RN ld1 Jess Castelan RN RN me1 Alda Thomas RN RN kj2
[2024-10-07] MEDS ORDERED: FENTANYL CITR 100 MCG/2 ML ONE (18:53)
[2024-10-07 20:11] VITALS: TEMP 98
[2024-10-07 20:23] VITALS: BP 136/70; O2SAT 100
--- NOTE | 2024-10-12 17:00 | EKG ---
Test Date: 2024-10-07 Test Time: 16:42:54 Stone Gang Sawyer: SAMREEN MEASUREMENT RESULTS: Intervals: Rate: 65 [place]: 146 QRSD: 92 QT: 422 QTc: 438 [place]: P: 66 [place]: 146 QRS: 57 T: 80 INTERPRETIVE STATEMENTS: Normal sinus rhythm Normal ECG Compared to ECG 11/15/2022 14:18:54 No significant changes Electronically Signed On 10-12-24 16:55:46 CDT by Joe Weber
== END 2024-10-07 19:08 | disposition home or self-care (01) ==
LOC: ER 14:56
DX: S16.1XXA Strain of muscle, fascia and tendon at neck level, initial encounter (principal); M50.10 Cervical disc disorder with radiculopathy, unspecified cervical region; M25.512 Pain in left shoulder; G89.29 Other chronic pain
CPT/HCPCS: 85025; 36415; 84484; 80053; 72125; 73030; J3010; J1100; J2405 ×2; 93005; 96374; 96375; 99284

== ENCOUNTER 2025-03-17 14:30 | Emergency (ER) | payer OTHER ==
[2025-03-17] MEDS ORDERED: ONDANSETRON 4 MG/2 ML VIAL ONE (15:04)
[2025-03-17] MEDS ORDERED: NA CHLORIDE 0.9% 1,000 ML ONE (15:05)
[2025-03-17] MEDS ORDERED: KETOROLAC 30 MG/ML INJ ONE (15:05)
[2025-03-17] MEDS ORDERED: FAMOTIDINE 20 MG/2 ML VIAL IV ONE (15:05)
[2025-03-17 15:13] LABS: Absolute Lymphocytes (CBC) 2.0 K/uL (0.7-4.9); Hematocrit 40.7 % (36.0-45.0); Hemoglobin 14.0 g/dL (12.0-15.0); MCH 30.7 pg (27.0-35.0); MCHC 34.5 g/dL (32.0-36.0); MCV 89.0 fL (80-100); MPV 6.4 fL (7.6-11.3); Nucleated RBC Absolute Count 0.0 (0-0); Nucleated Red Blood Cells % 0.0 % (0-0); RBC Red Blood Cell Count 4.57 M/uL (3.86-4.86); White Blood Count 11.30 thou/uL (4.3-10.9)
[2025-03-17 15:16] LABS: Urine Crystals Unidentified Few /HPF (None Seen); Urine Culture Reflex Order NOT NEEDED; Urine Microscopic Reflex YN ORDER UMIC; Urine WBC Clump Rare /HPF (None Seen); Urine Yeast (Budding) Trace /HPF (None Seen)
[2025-03-17 15:33] LABS: Anion Gap 9.8 mEq/L (5.0-15.0); BUN Blood Urea Nitrogen 8.0 mg/dL (7-18); Glucose Level 129.0 mg/dL (74-106); Potassium 3.8 mEq/L (3.5-5.1)
[2025-03-17 15:34] LABS: ALT/SGPT 21.0 U/L (13-56); AST/SGOT 17.0 U/L (15-37); Albumin 3.5 g/dL (3.4-5.0); Albumin/Globulin Ratio 0.9 (1.1-1.8); Alkaline Phosphatase 76.0 U/L (45-117); Globulin 3.9 g/dL (2.3-3.5); Lipase 19.0 U/L (13-75)
--- NOTE | 2025-03-17 17:00 | RAD REPORT ---
EXAMINATION: CT ABDOMEN AND PELVIS WITH CONTRAST CLINICAL INDICATION: Abdominal pain TECHNIQUE: CT abdomen and pelvis was performed, after the administration of 100 cc Isovue-300.. Sagit kim and coronal reconstructions were obtained. One or more of the following dose reduction techniques were used: Automated exposure control, adjustment of the mA and kV according to patient si ze, and iterative reconstruction. Unless otherwise specified, incidental findings do not require dedicated imaging follow-up. [id number]. Oral contrast was not given which limits evaluation of bowel and appendix. COMPARISON: .None FINDINGS: Some images are degraded by patient motion artifact. Liver, spleen, pancreas, adrenals and kidneys appear unremarkable Diverticula stem from colon without evidence of diverticulitis. 11 mm area of fat abuts the transvers e colon to the right of midline. Equivocal minimal stranding within the adjacent fat. Hysterectomy. No adnexal mass. Normal appendix. Tiny umbilical hernia. Atherosclerosis. : IMPRESSION: 11 mm area of fat adjacent to the transverse colon. It is uncertain if this represents mild subtle ep iploic appendagitis or volume averaging of normal structures.
--- NOTE | 2025-03-17 18:11 | RAD REPORT ---
EXAM: Abdominal exam Limited ultrasound CLINICAL HISTORY: Abdominal pain COMPARISON: None FINDINGS: The gallbladder is contracted which limits evaluation. A gallstone is not visualized. Gallbladder wall probably within normal limits. Biliary tree normal caliber IMPRESSION: Contracted gallbladder
--- NOTE | 2025-03-17 18:15 | EDPHYS ---
Physician Documentation [facility] Name: Taryn Murillo Age: 65 yrs Sex: Female : 1960 Arrival Date: 03/17/2025 Time: 14:30 Bed 18 Private MD: ED Physician Sahil Ogden HPI: 03/17 14:40 This 65 yrs old Female presents to ER via Unassigned with complaints of Abdominal Pain, kb Flank Pain. 14:40 Is a 65-year-old female who presents for upper abdominal pain and slight nausea that kb has been ongoing for 4 days. Reports pain is constant no aggravating or alleviating factors. Denies vomiting, diarrhea, fever, urinary symptoms.. Historical: - Allergies: 14:41 No Known Allergies; bp - PMHx: 14:41 Chronic pain; COPD; Hypercholesterolemia; Hypertensive disorder; bp - PSHx: 14:41 hysterectomy; stents; bp - Immunization history:: Adult Immunizations up to date. - Infectious Disease History:: Denies. - Social history:: Smoking status: unknown. ROS: 14:40 Constitutional: As per HPI kb Exam: 14:40 Constitutional: This is a well developed, well nourished patient who is awake, alert, kb and in no acute distress. Head/Face: Normocephalic, atraumatic. ENT: Moist Mucous membranes Cardiovascular: Regular rate Respiratory: Respirations even and unlabored. No increased work of breathing. Talking in full sentences Skin: Warm, dry with normal turgor. Normal color. MS/ Extremity: Pulses equal, no cyanosis. Neurovascular intact. Full, normal range of motion. Neuro: Awake and alert, GCS 15, oriented to person, place, time, and situation. 14:40 Abdomen/GI: Inspection: abdomen appears normal, Bowel sounds: normal, Palpation: soft, in all quadrants, mild abdominal tenderness, in the epigastric area and right upper quadrant, Vital Signs: 14:40 BP 151 / 78; Pulse 89; Resp 16; Temp 97.4; Pulse Ox 93% ; bp 15:02 BP 123 / 79; Pulse 90; Resp 16; Pulse Ox 96% on R/A; db 16:00 BP 154 / 81; Pulse 83; Resp 16; Pulse Ox 97% on R/A; db 18:00 BP 144 / 91; Pulse 87; Resp 18; Pulse Ox 97% on R/A; db MDM: 14:35 Medical Screening Exam initiated kb 18:09 Data reviewed: vital signs, nurses notes. Discussion of test interpretation with radiology: I had a discussion with radiology regarding a test interpretation. Discussed US with Dr Swartz (radiologist). contracted gallbladder with no stones. 18:15 Differential diagnosis: cholecystitis, Cholelithiasis, gastritis, gastroesophageal kb reflux disease, non-specific abd pain, pancreatitis, Peptic Ulcer Disease. Counseling: I had a detailed discussion with the patient and/or guardian regarding the historical points, exam findings, and any diagnostic results supporting the discharge/admit diagnosis, lab results, radiology results, the need for outpatient follow up, a public improvement inspector, to return to the emergency department if symptoms worsen or persist or if there are any questions or concerns that arise at home. 03/17 14:40 Order name: CBC with Diff; Complete Time: 15:27 kb 03/17 14:40 Order name: CMP; Complete Time: 15:42 kb 03/17 14:40 Order name: Lipase; Complete Time: 15:42 kb 03/17 14:40 Order name: UA Rfx Matty Cult if indicated; Complete Time: 15:27 kb 03/17 14:40 Order name: Abdomen Limited US; Complete Time: 18:16 kb 03/17 15:43 Order name: CT Abd/Pelvis - IV Contrast Only; Complete Time: 17:21 kb 03/17 14:40 Order name: IV Saline Lock; Complete Time: 15:13 kb 03/17 14:40 Order name: Labs collected and sent; Complete Time: 15:13 kb Administered Medications: 15:12 Drug: Famotidine IVP 20 mg IVP once; dilute with 10 mL 0.9% NaCl; give over 2 minutes me1 Route: IVP; Site: right antecubital; 18:39 Follow up: Response: No adverse reaction db 15:12 Drug: Ondansetron IVP 4 mg IVP once; over 2 minutes Route: IVP; Site: right antecubital;me1 18:39 Follow up: Response: No adverse reaction; Pain is decreased db 15:12 Drug: NS 0.9% IV 1000 ml IV at 1 bolus Per protocol; to be given as a bolus over 60 me1 minutes Route: IV; Rate: 1 bolus; Site: right antecubital; 18:39 Follow up: Response: No adverse reaction; IV Status: Completed infusion; IV Intake: db 1000ml 15:13 Drug: TORadol - Ketorolac IVP 15 mg IVP once Route: IVP; Site: right antecubital; pr1 18:39 Follow up: Response: No adverse reaction db Disposition Summary: 03/17/25 18:15 Discharge Ordered Notes: Location: Home kb Condition: Stable kb Diagnosis - Upper abdominal pain, unspecified kb Followup: kb - With: Emergency Department - When: As needed - Reason: Worsening of condition Followup: kb - With: Private Physician - When: 2 - 3 days - Reason: Recheck today's complaints, Continuance of care, Re-evaluation by your physician Discharge Instructions: - Discharge Summary Sheet kb - Biliary Colic, Adult kb - Abdominal Pain, Adult, [id number] kb Forms: - Medication Reconciliation Form kb - Antibiotic Education kb - Prescription Opioid Use kb - Patient Portal Instructions kb - Leadership Thank You Letter kb Prescriptions: - Protonix 40 mg Oral Tablet - take 1 tablet ORAL route once daily; 30 tablet; Refills: 0, Product Selection kb Permitted Signatures: Dispatcher [employer] EDMS Millicent Valdovinos, CUB REPORTER-C CUB REPORTER-Michele Swift, RN RN bp Jess Castelan, RN RN pr1 Pebbles Alvares RN db Corrections: (The following items were deleted from the chart) 14:40 14:40 CBC+H.LAB.BRZ ordered. EDMS EDMS 14:40 14:40 COMPREHENSIVE METABOLIC PANEL+C.LAB.BRZ ordered. EDMS EDMS 14:40 14:40 LIPASE+C.LAB.BRZ ordered. EDMS EDMS 14:40 14:40 UA Rfx Matty Cult if indicated+U.LAB.BRZ ordered. EDMS EDMS
--- NOTE | 2025-03-17 18:15 | ER ---
Nurse's Notes [facility] Name: Taryn Murillo Age: 65 yrs Sex: Female : 1960 Arrival Date: 03/17/2025 Time: 14:30 Bed 18 Private MD: Diagnosis: Upper abdominal pain, unspecified Presentation: 03/17 14:40 Chief complaint: Patient states: MIDLINE ABD PAIN x4 DAYS. Coronavirus screen: At this bp time, the client does not indicate any symptoms associated with coronavirus-19. Ebola Screen: No symptoms or risks identified at this time. Initial Sepsis Screen: Does the patient meet any 2 criteria? No. Patient's initial sepsis screen is negative. Does the patient have a suspected source of infection? No. Patient's initial sepsis screen is negative. Risk Assessment: Do you want to hurt yourself or someone else? Patient reports no desire to harm self or others. Onset of symptoms is unknown. 14:40 Method Of Arrival: Ambulatory bp 14:40 Acuity: WALT 3 bp Triage Assessment: 14:41 General: Appears in no apparent distress. Behavior is calm, cooperative, appropriate bp for age. Pain: Complains of pain in right upper quadrant and epigastric area. EENT: No deficits noted. Neuro: No deficits noted. Cardiovascular: No deficits noted. Respiratory: No deficits noted. GI: Reports upper abdominal pain. : No signs and/or symptoms were reported regarding the genitourinary system. Derm: No deficits noted. Musculoskeletal: No deficits noted. Historical: - Allergies: 14:41 No Known Allergies; bp - PMHx: 14:41 Chronic pain; COPD; Hypercholesterolemia; Hypertensive disorder; bp - PSHx: 14:41 hysterectomy; stents; bp - Immunization history:: Adult Immunizations up to date. - Infectious Disease History:: Denies. - Social history:: Smoking status: unknown. Screenin:16 [facility] ED Fall Risk Assessment (Adult) History of falling in the last 3 months, me1 including since admission No falls in past 3 months (0 pts) Confusion or Disorientation No (0 pts) Intoxicated or Sedated No (0 pts) Impaired Gait No (0 pts) Mobility Assist Device Used No (0 pt) Altered Elimination No (0 pt) Score/Fall Risk Level 0 - 2 = Low Risk Maintained a safe environment, Provided non-skid footwear, Hourly rounding (assess needs \T\ fall precautionary measures) done. Abuse screen: Denies threats or abuse. Nutritional screening: No deficits noted. Tuberculosis screening: No symptoms or risk factors identified. Assessment: 15:13 General: Appears uncomfortable, well groomed, well developed, well nourished, Behavior me1 is calm, cooperative, appropriate for age, Reports MIDLINE ABD PAIN x4 DAYS. Pain: Complains of pain in epigastric area Pain radiates to right upper quadrant Pain currently is 4 out of 10 on a pain scale. Quality of pain is described as sharp, Pain began suddenly, Is continuous. Neuro: Level of Consciousness is awake, alert, obeys commands, Oriented to person, place, time, situation, Appropriate for age. Cardiovascular: Patient's skin is warm and dry. Respiratory: Airway is patent Respiratory effort is even, unlabored, Respiratory pattern is regular, symmetrical. GI: Abdomen is non-distended, Bowel sounds present X 4 quads. Abd is soft X 4 quads Reports upper abdominal pain, epigastric pain, nausea, since 4 DAYS AGO. : No signs and/or symptoms were reported regarding the genitourinary system. EENT: No signs and/or symptoms were reported regarding the EENT system. Derm: Skin is intact, is healthy with good turgor, Skin is normal. Musculoskeletal: Circulation, motion, and sensation intact. Range of motion: intact in all extremities. 15:43 Reassessment: Patient appears in no apparent distress at this time. Patient and/or db family updated on plan of care and expected duration. Pain level reassessed. Patient is alert, oriented x 3, equal unlabored respirations, skin warm/dry/pink. 18:38 Reassessment: Patient appears in no apparent distress at this time. Patient and/or db family updated on plan of care and expected duration. Pain level reassessed. Patient is alert, oriented x 3, equal unlabored respirations, skin warm/dry/pink. Patient states feeling better. Patient states symptoms have improved. Vital Signs: 14:40 BP 151 / 78; Pulse 89; Resp 16; Temp 97.4; Pulse Ox 93% ; bp 15:02 BP 123 / 79; Pulse 90; Resp 16; Pulse Ox 96% on R/A; db 16:00 BP 154 / 81; Pulse 83; Resp 16; Pulse Ox 97% on R/A; db 18:00 BP 144 / 91; Pulse 87; Resp 18; Pulse Ox 97% on R/A; db ED Course: 14:34 Patient arrived in ED. cj3 14:35 Millicent Valdovinos FNP-C [facility]. kb 14:35 Sahil Ogden MD is Attending Physician. kb 14:41 Triage completed. bp 14:41 Arm band placed on. bp 15:06 Jess Castelan, RN is Primary Nurse. me1 15:12 Initial lab(s) drawn, by me, sent to lab. Urine collected: clean catch specimen, me1 cloudy. Inserted saline lock: 22 gauge in right antecubital area, using aseptic technique. 15:16 Patient has correct armband on for positive identification. Bed in low position. Call me1 light in reach. Side rails up X 1. Provided Education on: POC. Verbalized understanding.. Client placed on continuous cardiac and pulse oximetry monitoring. NIBP monitoring applied. Pulse ox on. NIBP on. 15:16 No provider procedures requiring assistance completed. me1 15:41 Pebbles Alvares, RN is Primary Nurse. db 15:42 Patient moved back from ultrasound. db 15:46 Abdomen Limited US In Process Unspecified. EDMS 16:12 Warm blanket given. Pillow given. db 16:45 CT Abd/Pelvis - IV Contrast Only In Process Unspecified. EDMS 18:38 IV discontinued, intact, bleeding controlled, No redness/swelling at site. db Administered Medications: 15:12 Drug: Famotidine IVP 20 mg IVP once; dilute with 10 mL 0.9% NaCl; give over 2 minutes me1 Route: IVP; Site: right antecubital; 18:39 Follow up: Response: No adverse reaction db 15:12 Drug: Ondansetron IVP 4 mg IVP once; over 2 minutes Route: IVP; Site: right antecubital;me1 18:39 Follow up: Response: No adverse reaction; Pain is decreased db 15:12 Drug: NS 0.9% IV 1000 ml IV at 1 bolus Per protocol; to be given as a bolus over 60 me1 minutes Route: IV; Rate: 1 bolus; Site: right antecubital; 18:39 Follow up: Response: No adverse reaction; IV Status: Completed infusion; IV Intake: db 1000ml 15:13 Drug: TORadol - Ketorolac IVP 15 mg IVP once Route: IVP; Site: right antecubital; me1 18:39 Follow up: Response: No adverse reaction db Medication: 15:16 VIS not applicable for this client. me1 Intake: 18:39 IV: 1000ml; Total: 1000ml. db Outcome: 18:15 Discharge ordered by . kb 18:38 Discharged to home ambulatory, with family, db 18:38 Condition: stable 18:38 Discharge instructions given to patient, Instructed on discharge instructions, follow up and referral plans. Prescriptions given X 1, 18:40 Patient left the ED. db Signatures: Dispatcher [employer] EDMS Millicent Valdovinos, MEDIA PRODUCER-C MEDIA PRODUCER-Michele Swift, RN RN bp Pebbles Alvares, RN RN db Jess Castelan, LIEN RN me1 Erma Hdz cj3 Corrections: (The following items were deleted from the chart) 15:13 14:40 Chief complaint: Patient states: MIDLINE ABD PAIN x4 DAYS bp me1 16:13 16:12 IV discontinued, intact, bleeding controlled, No redness/swelling at site. db db 16:13 16:12 Discharged to home ambulatory, with family, db db 16:13 16:12 Condition: stable db db 16:13 16:12 Discharge instructions given to patient, family, Instructed on discharge db instructions, follow up and referral plans. Prescriptions given X 2, db
[2025-03-17 21:20] VITALS: TEMP 97.4
[2025-03-17 21:29] VITALS: O2SAT 97
[2025-03-17 21:30] VITALS: BP 144/91
== END 2025-03-17 18:40 | disposition home or self-care (01) ==
LOC: ER 14:30
DX: R10.10 Upper abdominal pain, unspecified (principal); R11.0 Nausea; J44.9 Chronic obstructive pulmonary disease, unspecified; E78.00 Pure hypercholesterolemia, unspecified; I10 Essential (primary) hypertension
CPT/HCPCS: 96361; 85025; 81001; 36415; 83690; 80053; 74177; 76705; 96375; 96374; 99285; Q9967; J1885; J2405; J7030